=== PATIENT | male | born 1970 | race Caucasian/White ===

== ENCOUNTER 2020-03-28 00:15 | Observation (INO) ==
[2020-03-28] MEDS ORDERED: SODIUM CHLORIDE 0.9% 1000ML 1,000 ML IV ONE ×2 (00:47→03:43)
[2020-03-28] MEDS ORDERED: fentaNYL citrate 100 MCG/2 ML VIAL IV STA (00:47)
[2020-03-28] MEDS ORDERED: ONDANSETRON INJ 2 MG/ML 2 ML VIAL IV STA (00:51)
[2020-03-28 01:40] LABS: Hematocrit (blood only) 31.2 % (42-52); Hemoglobin 10.9 g/dL (14.0-18.0); Mean Corpuscular Hemoglobin 33.4 pg (25-34); Mean Corpuscular Hgb Conc 34.9 g/dL (32-36); Mean Corpuscular Volume 95.7 fL (80-100); Mean Platelet Volume 10.2 fL (7.4-10.4); Platelet Count 115 K/uL (130-400); RDW Coefficient of Variation 13.6 % (11.5-14.5); RDW Standard Deviation 47.5 fL (36.4-46.3); Red Blood Count 3.26 M/uL (4.7-6.1); White Blood Count 8.45 K/uL (4.8-10.8)
[2020-03-28 02:01] LABS: Albumin Level 3.2 gm/dl (3.4-5.0); Calcium 10.5 mg/dl (8.5-10.1); Creatinine Clr Calc Pharmacy 66.9 ml/min; Est GFR (African American) 69.1; Est GFR (Non-African American) 59.6; INR 1.1 (0.9-1.1); Partial Thromboplastin Ratio 0.8; Partial Thromboplastin Time 22.8 Seconds (21.0-31.0); Prothrombin Time 11.3 Seconds (9.0-12.0)
[2020-03-28 02:03] LABS: Bilirubin,Total 0.3 mg/dl (0.2-1); Globulin 3.1 gm/dl (2.5-4.0); Total Protein 6.3 gm/dl (6.4-8.2)
[2020-03-28 02:12] LABS: ALC (manual) 3.74 K/uL (1.2-3.4); ANC (manual) 4.12 K/uL (1.4-6.5); Eosinophils # (manual) 0.14 K/uL (0-0.5); Eosinophils % (manual) 1.7 %; Lymphocytes # (manual) 3.74 K/uL (1.2-3.4); Lymphocytes % (manual) 44.3 %; Monocytes # (manual) 0.22 K/uL (0.11-0.59); Monocytes % (manual) 2.6 %; Myelocytes # (manual) 0.22 K/uL (0-0); Myelocytes % (manual) 2.6 %; Neutrophils # (manual) 4.12 K/uL (1.4-6.5); Neutrophils % (manual) 48.8 %; Ovalocytes 1+
[2020-03-28 02:19] LABS: Appearance Urine Clear (Clear); Bacteria Urine Automated Negative (Negative); Bilirubin Urine Negative (Negative); Blood Urine 1+ (Negative); Color Urine Yellow; Glucose Urine UA Negative (Negative); Ketones Urine Negative (Negative); Leukocyte Esterase Urine Negative (Negative); Nitrite Urine Negative (Negative); Protein Urine 2+ (Negative); Specific Gravity Urine 1.044 (1.000-1.030); Urobilinogen Urine Negative (Negative)
[2020-03-28 02:30] LABS: Calcium Oxalate Crystals Urine Present (None Prsent)
[2020-03-28 02:31] LABS: RBC Urine Automated 0-4 /hpf (0-4)
[2020-03-28 02:36] LABS: C Reactive Protein 0.73 mg/dl (0-0.29)
[2020-03-28] MEDS ORDERED: GADOBUTROL 65ML VIAL IV PRN (02:52)
[2020-03-28] MEDS ORDERED: ACETAMINOPHEN 1,000 MG/100 ML VIAL IV STA (02:57)
--- NOTE | 2020-03-28 03:42 | Emergency Department Note ---
History of Present Illness General Chief complaint: Back Injury/Pain Stated complaint: LWR BACK PAIN - LUMBAR FUSION History of Present Illness Maximum Pain Intensity: 10 This 49-year-old cancer patient with multiple myeloma currently receiving chemo presents to the ER complaining of severe low back pain Location: Low back Quality: Achy Severity: Severe Duration: Today Timing: Today Context: Patient was concerned and came in Modifying factors: better with rest; worse with activity Patient states he had a low-grade fever yesterday after chemo. None today. Patient denies chest pain, dyspnea, cough, congestion, abdominal pain, loss of bowel bladder control, saddle anesthesia, leg weakness. He has had back surgery many years ago. Home Medications Home Medications Medication Instructions Recorded Confirmed Type docusate sodium 100 mg capsule 100 mg PO BID #60 cap 03/13/20 03/28/20 Rx acyclovir 400 mg PO BID 03/28/20 03/28/20 History aspirin [Aspirin Low Dose] 81 mg PO DAILY 03/28/20 03/28/20 History bortezomib [Velcade] 0 mg DIRECTED 03/28/20 03/28/20 History dexamethasone 4 mg PO DIRECTED 03/28/20 03/28/20 History lenalidomide [Revlimid] 25 mg PO DIRECTED 03/28/20 03/28/20 History prochlorperazine maleate 10 mg PO Q6H PRN 03/28/20 03/28/20 History [Compazine] Allergies Allergy/AdvReac Type Severity Reaction Status Date / Time No Known Allergies Allergy Unknown ` Verified 03/28/20 01:34 Past Med/Surg History Medical History (Updated 03/28/20 @ 05:22 by Saran Winn MD) Degenerative lumbar spinal stenosis Disc degeneration, lumbar (Acute) Hemorrhoid Multiple myeloma (Acute) Neuroforaminal stenosis of lumbar spine Surgical History History of lumbar surgery 2014 Family History Grandfather (Maternal) Stroke Denies family history of Ovarian cancer Prostate cancer Myocardial infarction Breast cancer Colorectal cancer Lung disease Social History Smoking Status: Never smoker Second Hand Exposure: Yes ( smokes outside); Hx Alcohol Use: Yes Alcohol type: beer Hx Substance Use: No Preferred Language: Malawian Visual Impairment: No Limitations Hearing Ability: Normal Beliefs That Will Affect Care: None current occupational status: employed current occupation: [employer] Feels Safe at Home: Yes Childhood Exposure to Second-Hand Smoke: No Review of Systems A total of 10 systems reviewed and were otherwise negative Physical Exam Vital Signs Vital Signs - 24 hr 03/28/20 00:22 03/28/20 01:00 03/28/20 01:43 Temperature 37 C Temperature Source Oral Pulse Rate 103 H 93 H Pulse Rate [Finger] 97 H Pulse Rate from SpO2 Sensor Pulse Rhythm Regular Pulse Rhythm [Finger] Respiratory Rate 20 20 20 Respiratory Effort / Characteristics Non-Labored Spontaneous Non-Labored Spontaneous Respiratory Depth Normal Normal Respiratory Pattern Regular Blood Pressure 99/59 L Blood Pressure [Right Arm] 96/64 L Blood Pressure Mean 72 Blood Pressure Mean [Right Arm] 74 Blood Pressure Position [Right Arm] Lying Pulse Oximetry 98 95 95 Oxygen Delivery Method Room Air Room Air Room Air Sepsis Recent Fever Within 48 Hours Yes Sepsis New/Unexplained Change in Mental Status N/A Sepsis Action Taken by Nursing No Action Required 03/28/20 02:51 03/28/20 02:55 03/28/20 03:00 Temperature Temperature Source Pulse Rate 93 H 91 H 91 H Pulse Rate [Finger] Pulse Rate from SpO2 Sensor 93 H 90 91 H Pulse Rhythm Pulse Rhythm [Finger] Respiratory Rate 16 19 17 Respiratory Effort / Characteristics Respiratory Depth Respiratory Pattern Blood Pressure 95/50 L 95/56 L Blood Pressure [Right Arm] Blood Pressure Mean 63 72 Blood Pressure Mean [Right Arm] Blood Pressure Position [Right Arm] Pulse Oximetry 95 95 94 Oxygen Delivery Method Sepsis Recent Fever Within 48 Hours Sepsis New/Unexplained Change in Mental Status Sepsis Action Taken by Nursing 03/28/20 03:05 03/28/20 03:06 03/28/20 03:10 Temperature Temperature Source Pulse Rate 92 H Pulse Rate [Finger] 92 H Pulse Rate from SpO2 Sensor 93 H Pulse Rhythm Pulse Rhythm [Finger] Regular Respiratory Rate 18 19 Respiratory Effort / Characteristics Respiratory Depth Normal Respiratory Pattern Blood Pressure Blood Pressure [Right Arm] 95/56 L Blood Pressure Mean Blood Pressure Mean [Right Arm] 69 Blood Pressure Position [Right Arm] Pulse Oximetry 94 94 94 Oxygen Delivery Method Room Air Room Air Sepsis Recent Fever Within 48 Hours Sepsis New/Unexplained Change in Mental Status Sepsis Action Taken by Nursing 03/28/20 03:20 03/28/20 03:30 03/28/20 03:40 Temperature Temperature Source Pulse Rate 91 H 85 83 Pulse Rate [Finger] Pulse Rate from SpO2 Sensor 90 85 83 Pulse Rhythm Pulse Rhythm [Finger] Respiratory Rate 16 14 15 Respiratory Effort / Characteristics Respiratory Depth Respiratory Pattern Blood Pressure 93/51 L Blood Pressure [Right Arm] Blood Pressure Mean 65 Blood Pressure Mean [Right Arm] Blood Pressure Position [Right Arm] Pulse Oximetry 93 93 93 Oxygen Delivery Method Sepsis Recent Fever Within 48 Hours Sepsis New/Unexplained Change in Mental Status Sepsis Action Taken by Nursing 03/28/20 03:49 03/28/20 03:51 03/28/20 04:00 Temperature Temperature Source Pulse Rate 85 89 82 Pulse Rate [Finger] Pulse Rate from SpO2 Sensor 85 88 83 Pulse Rhythm Pulse Rhythm [Finger] Respiratory Rate 17 17 16 Respiratory Effort / Characteristics Respiratory Depth Respiratory Pattern Blood Pressure 93/55 L 95/50 L Blood Pressure [Right Arm] Blood Pressure Mean 65 65 Blood Pressure Mean [Right Arm] Blood Pressure Position [Right Arm] Pulse Oximetry 94 93 94 Oxygen Delivery Method Sepsis Recent Fever Within 48 Hours Sepsis New/Unexplained Change in Mental Status Sepsis Action Taken by Nursing 03/28/20 04:10 03/28/20 04:20 03/28/20 04:30 Temperature Temperature Source Pulse Rate 83 91 H 87 Pulse Rate [Finger] Pulse Rate from SpO2 Sensor 83 92 H 88 Pulse Rhythm Pulse Rhythm [Finger] Respiratory Rate 15 20 18 Respiratory Effort / Characteristics Respiratory Depth Respiratory Pattern Blood Pressure 91/60 L Blood Pressure [Right Arm] Blood Pressure Mean 67 Blood Pressure Mean [Right Arm] Blood Pressure Position [Right Arm] Pulse Oximetry 93 95 95 Oxygen Delivery Method Sepsis Recent Fever Within 48 Hours Sepsis New/Unexplained Change in Mental Status Sepsis Action Taken by Nursing 03/28/20 04:40 03/28/20 04:50 03/28/20 05:00 Temperature Temperature Source Pulse Rate 84 87 86 Pulse Rate [Finger] Pulse Rate from SpO2 Sensor 84 87 86 Pulse Rhythm Pulse Rhythm [Finger] Respiratory Rate 18 15 14 Respiratory Effort / Characteristics Respiratory Depth Respiratory Pattern Blood Pressure 96/58 L Blood Pressure [Right Arm] Blood Pressure Mean 64 Blood Pressure Mean [Right Arm] Blood Pressure Position [Right Arm] Pulse Oximetry 96 96 94 Oxygen Delivery Method Sepsis Recent Fever Within 48 Hours Sepsis New/Unexplained Change in Mental Status Sepsis Action Taken by Nursing 03/28/20 05:04 Temperature Temperature Source Pulse Rate Pulse Rate [Finger] 90 Pulse Rate from SpO2 Sensor Pulse Rhythm Pulse Rhythm [Finger] Respiratory Rate 16 Respiratory Effort / Characteristics Non-Labored Respiratory Depth Normal Respiratory Pattern Blood Pressure Blood Pressure [Right Arm] 96/58 L Blood Pressure Mean Blood Pressure Mean [Right Arm] 70 Blood Pressure Position [Right Arm] Pulse Oximetry 96 Oxygen Delivery Method Room Air Sepsis Recent Fever Within 48 Hours Sepsis New/Unexplained Change in Mental Status Sepsis Action Taken by Nursing VITALS: Vitals are noted on the nurse's note and reviewed by myself. Vital signs stable. GENERAL: Pleasant male who appears in pain, in no acute distress, nondiaphoretic, well-developed well-nourished. SKIN: Capillary reflex less than 2 seconds. Left lower abdomen with 3 cm a 4 cm erythematous area that is blanchable. HEENT: Normocephalic. PERRLA. EOMI. Nares patent. Mucous membranes moist. Neck is supple without nuchal rigidity. HEART: Regular rate and rhythm LUNGS: Clear to auscultation bilaterally without wheezes, rales or rhonchi. No retractions or accessory muscle use. ABDOMEN: Positive bowel sounds x 4. Normal tympanic percussion. Soft, nontender, without masses or organomegaly. Hendrickson sign negative. No guarding or rebound tenderness. MUSCULOSKELETAL: No gross musculoskeletal defects. No thoracic tenderness. Tender to palpation at L4 and L5. No step-offs. Patient can plantarflex and dorsiflex. NEURO: Patient was alert and oriented to person place and time. Normal sensation to light and sharp touch. Deep tendon reflexes 2+ patella bilaterally. No focal neurological deficits. Course Administered Medications Gadobutrol (Gadavist 65ml) 8.6 ml IV ONCE PRN PRN Reason: Interaction Checking Stop: 04/01/20 02:51 Last Admin: 03/28/20 02:30 Dose: 8.6 ml Documented by: [id number] Discontinued Medications Fentanyl Citrate (Fentanyl Citrate) 100 mcg IV NOW STA Stop: 03/28/20 00:48 Last Admin: 03/28/20 01:37 Dose: 100 mcg Documented by: [id number] Sodium Chloride (Nss 1000ml) 1,000 mls @ 999 mls/hr IV .Q1H1M ONE Stop: 03/28/20 01:47 Last Infusion: 03/28/20 02:54 Dose: 0 mls/hr Documented by: [id number] Admin: 03/28/20 01:37 Dose: 999 mls/hr Documented by: [id number] Acetaminophen (Ofirmev) 1,000 mg in 100 mls @ 400 mls/hr IV NOW STA Stop: 03/28/20 03:11 Last Infusion: 03/28/20 03:33 Dose: 0 mls/hr Documented by: [id number] Admin: 03/28/20 03:18 Dose: 400 mls/hr Documented by: [id number] Sodium Chloride (Nss 1000ml) 1,000 mls @ 999 mls/hr IV .Q1H1M ONE Stop: 03/28/20 04:43 Last Infusion: 03/28/20 05:06 Dose: 0 mls/hr Documented by: [id number] Admin: 03/28/20 04:05 Dose: 999 mls/hr Documented by: [id number] Ondansetron HCl (Zofran) 4 mg IV NOW STA Stop: 03/28/20 00:52 Last Admin: 03/28/20 01:37 Dose: 4 mg Documented by: [id number] Medical Decision Making Medical Records Attestation: I reviewed the patient's medical records. Home Medications Current Medication List: was personally reviewed by me Laboratory Data Attestation: I reviewed the patient's lab results. Result diagrams: 03/28/20 01:25 03/28/20 01:25 Lab Results 03/28/20 03/28/20 03/28/20 Range/Units 01:24 01:25 01:25 WBC 8.45 (4.8-10.8) K/uL RBC 3.26 L (4.7-6.1) M/uL Hgb 10.9 L (14.0-18.0) g/dL Hct 31.2 L (42-52) % MCV 95.7 (80-100) fL MCH 33.4 (25-34) pg MCHC 34.9 (32-36) g/dL RDW Std Deviation 47.5 H (36.4-46.3) fL RDW Coeff of Regina 13.6 (11.5-14.5) % Plt Count 115 L (130-400) K/uL MPV 10.2 (7.4-10.4) fL Neutrophils % (Manual) 48.8 % Lymphocytes % (Manual) 44.3 % Monocytes % (Manual) 2.6 % Eosinophils % (Manual) 1.7 % Myelocytes % (Man) 2.6 % Neutrophils # (Manual) 4.12 (1.4-6.5) K/uL Total Absolute Neuts 4.12 (1.4-6.5) K/uL Lymphocytes # (Manual) 3.74 H (1.2-3.4) K/uL Total Abs Lymphocytes 3.74 H (1.2-3.4) K/uL Monocytes # (Manual) 0.22 (0.11-0.59) K/uL Eosinophils # (Manual) 0.14 (0-0.5) K/uL Myelocytes # (Manual) 0.22 H (0-0) K/uL Ovalocytes 1+ ESR (0-14) mm/hr PT 11.3 (9.0-12.0) Seconds INR 1.1 (0.9-1.1) APTT 22.8 (21.0-31.0) Seconds PTT Ratio 0.8 Sodium (136-145) mmol/L Potassium (3.5-5.1) mmol/L Chloride (98-107) mmol/L Carbon Dioxide (21-32) mmol/L Anion Gap (3-11) BUN (7-18) mg/dl Creatinine (0.6-1.4) mg/dl Est Cr Clr Drug Dosing ml/min Est GFR ( Amer) Est GFR (Non-Af Amer) BUN/Creatinine Ratio (10-20) Glucose (70-99) mg/dl Lactate 0.9 (0.4-2.0) mmol/L Calcium (8.5-10.1) mg/dl Magnesium (1.8-2.4) mg/dl Total Bilirubin (0.2-1) mg/dl AST (15-37) U/L ALT (12-78) U/L Alkaline Phosphatase (45-117) U/L C-Reactive Protein (0-0.29) mg/dl Total Protein (6.4-8.2) gm/dl Albumin (3.4-5.0) gm/dl Globulin (2.5-4.0) gm/dl Albumin/Globulin Ratio (0.9-2) Urine Color Urine Appearance (Clear) Urine pH (4.5-7.5) Ur Specific [place] (1.000-1.030) Urine Protein (Negative) Urine Glucose (UA) (Negative) Urine Ketones (Negative) Urine Blood (Negative) Urine Nitrite (Negative) Urine Bilirubin (Negative) Urine Urobilinogen (Negative) Ur Leukocyte Esterase (Negative) Urine WBC (Auto) (0-5) /hpf Urine RBC (Auto) (0-4) /hpf U Hyaline Cast (Auto) (0-5) /lpf U Epithel Cells (Auto) (0-5) /lpf Urine Bacteria (Auto) (Negative) Urine Crystals Calcium Oxalate Crystal (None Prsent) 03/28/20 03/28/20 03/28/20 Range/Units 01:25 01:25 01:25 WBC (4.8-10.8) K/uL RBC (4.7-6.1) M/uL Hgb (14.0-18.0) g/dL Hct (42-52) % MCV (80-100) fL MCH (25-34) pg MCHC (32-36) g/dL RDW Std Deviation (36.4-46.3) fL RDW Coeff of Regina (11.5-14.5) % Plt Count (130-400) K/uL MPV (7.4-10.4) fL Neutrophils % (Manual) % Lymphocytes % (Manual) % Monocytes % (Manual) % Eosinophils % (Manual) % Myelocytes % (Man) % Neutrophils # (Manual) (1.4-6.5) K/uL Total Absolute Neuts (1.4-6.5) K/uL Lymphocytes # (Manual) (1.2-3.4) K/uL Total Abs Lymphocytes (1.2-3.4) K/uL Monocytes # (Manual) (0.11-0.59) K/uL Eosinophils # (Manual) (0-0.5) K/uL Myelocytes # (Manual) (0-0) K/uL Ovalocytes ESR 5 (0-14) mm/hr PT (9.0-12.0) Seconds INR (0.9-1.1) APTT (21.0-31.0) Seconds PTT Ratio Sodium 144 (136-145) mmol/L Potassium 4.0 (3.5-5.1) mmol/L Chloride 110 H (98-107) mmol/L Carbon Dioxide 28 (21-32) mmol/L Anion Gap 6.0 (3-11) BUN 22 H (7-18) mg/dl Creatinine 1.38 (0.6-1.4) mg/dl Est Cr Clr Drug Dosing 66.9 ml/min Est GFR ( Amer) 69.1 Est GFR (Non-Af Amer) 59.6 BUN/Creatinine Ratio 16.0 (10-20) Glucose 92 (70-99) mg/dl Lactate (0.4-2.0) mmol/L Calcium 10.5 H (8.5-10.1) mg/dl Magnesium 2.0 (1.8-2.4) mg/dl Total Bilirubin 0.3 (0.2-1) mg/dl AST 18 (15-37) U/L ALT 23 (12-78) U/L Alkaline Phosphatase 81 (45-117) U/L C-Reactive Protein 0.73 H (0-0.29) mg/dl Total Protein 6.3 L (6.4-8.2) gm/dl Albumin 3.2 L (3.4-5.0) gm/dl Globulin 3.1 (2.5-4.0) gm/dl Albumin/Globulin Ratio 1.0 (0.9-2) Urine Color Yellow Urine Appearance Clear (Clear) Urine pH 5.0 (4.5-7.5) Ur Specific [place] 1.044 H (1.000-1.030) Urine Protein 2+ H (Negative) Urine Glucose (UA) Negative (Negative) Urine Ketones Negative (Negative) Urine Blood 1+ H (Negative) Urine Nitrite Negative (Negative) Urine Bilirubin Negative (Negative) Urine Urobilinogen Negative (Negative) Ur Leukocyte Esterase Negative (Negative) Urine WBC (Auto) 5-10 H (0-5) /hpf Urine RBC (Auto) 0-4 (0-4) /hpf U Hyaline Cast (Auto) 10-30 H (0-5) /lpf U Epithel Cells (Auto) 10-20 H (0-5) /lpf Urine Bacteria (Auto) Negative (Negative) Urine Crystals Not Reportable Calcium Oxalate Crystal Present A (None Prsent) Imaging Data Attestation: I personally reviewed and interpreted this imaging study as f armando: Blood Pressure Blood Pressure Findings: Low blood pressure MDM Narrative Prior records/ancillary studies reviewed. Triage Nursing notes reviewed. Additional history obtained from family. The patient's history was concerning for back pain. Differential diagnosis: Etiologies such as musculoskeletal, disc herniation, fracture, aortic disease, metastatic disease, cord compression, discitis, infection, renal colic, gastrointestinal, acute exacerbation of chronic back pain, sciatica, cauda equina, as well as others were entertained. Physical findings: As above. No focal neurologic findings noted. ER treatment provided: IV fluids, fentanyl On reassessment the patient felt better. Diagnostics interpreted by me: EKG ordered for severe pain EKG: Normal sinus, normal intervals, no acute ST-T wave changes. Impression normal sinus rhythm interpreted by myself I think arrhythmia is unlikely. EKG shows normal sinus rhythm with no interval abnormalities such as QT prolongation or WPW. There are no findings to suggest Brugada syndrome. Cardiac monitoring in the emergency department reveals no tachycardic or bradycardic dysrhythmia. Hypertrophic cardiomyopathy was considered but there are no clear historical elements pointing toward this. EKG is not suggestive. The QRS voltage is not extremely large and there are no suggestive Q waves. The labs revealed mild anemia, negative lactic acid. Negative urine Blood cultures pending. Imaging studies: Chest x-ray with no acute consolidation, pneumothorax or free air per my interpretation MRI L SPINE : COMPARISON: Fluoroscopic intraoperative imaging dated 12/27/12 Inferior endplate Schmorl's nodes seen at L1. Some abnormal signal seen within the vertebral body with sclerosis, possibly due to myeloma. Minimal edema is seen secondary to the Schmorl's node. Broad-based disc bulge with ligamentous and facet hypertrophy of L2/L3 causing severe central stenosis. AP diameter of the spinal canal is narrowed to 3.8 mm. Bilateral lateral recess stenosis is also seen. Broad-based disc bulge also seen at L1/L2 with ligamentous and facet hypertrophy causing mild to moderate central stenosis. Evidence of previous L4 and L5 laminectomy with posterior fusion of L3-S1. Bilateral left worse than right neuroforaminal stenosis seen at L4/L5. Some epidural fibrosis is seen anterior to the left at L4/L5 and possibly involving the exiting left L4 nerve root. Radiologist: Bryson Valenzuela M.D. Consultation: A consultation was placed with hospitalist, Dr. Hebert. The case was discussed and diagnostics were reviewed. He will evaluate the patient. This appears to be consistent with intractable back pain with hypotension and multiple myeloma Olga possibly metastases to the spine. Patient still moderate amount of pain. Medicine was consulted. He will be admitted. Patient's blood pressure sure was still a little low. He was asymptomatic. He was given a liter of fluid. He had a fever yesterday but none today. Negative lactic acid. No leukocytosis. No urine infection. Negative chest x-ray. Patient started on antibiotics for possible cellulitis of the abdominal wall. This was outlined by nursing. By the evaluation outlined above emergent etiologies such as fracture, aortic disease, infection, renal colic, gastrointestinal, cord compression, cauda equina, as well as others were deemed relatively unlikely. The pt informed about the findings as listed above. All questions were answered and pleased with the treatment. . The chart was completed utilizing [employer] Speech voice recognition software. Grammatical errors, random word insertions, pronoun errors, and incomplete sentences are an occassional consequence of this system due to software limitations, ambient noise, and hardware issues. Any formal questions or concerns about the content, text, or information contained within the body of this dictation should be directly addressed to the physician enrichment assistant for clarification. Impression & Plan Disc degeneration, lumbar, Multiple myeloma, Intractable low back pain Discharge Plan Visit Data Chief Complaint: Back Injury/Pain Stated Complaint: LWR BACK PAIN - LUMBAR FUSION ED Provider: Angely Smith ED Midlevel Provider: Linda Treviño Discharge Problem: Disc degeneration, lumbar, Multiple myeloma, Intractable low back pain Patient Disposition: Being Evaluated by Hospitalist Condition: Fair Forms Stand Alone Forms: [facility] SongAfter Prescriptions Prescriptions: No Action docusate sodium [Colace] 100 mg capsule 100 mg PO BID Qty: 60 RF: 1 acyclovir 400 mg Tablet 400 mg PO BID RF: 0 prochlorperazine maleate [Compazine] 10 mg Tablet 10 mg PO Q6H PRN (Reason: Nausea) RF: 0 aspirin [Aspirin Low Dose] 81 mg Tablet,Delayed Release (Dr/Ec) 81 mg PO DAILY RF: 0 dexamethasone 4 mg Tablet 4 mg PO DIRECTED RF: 0 Velcade 3.5 mg Recon Soln 0 mg DIRECTED RF: 0 Revlimid 25 mg Capsule 25 mg PO DIRECTED RF: 0 Referrals Referrals: Adrian Prince MD [Primary Care Provider] -
[2020-03-28] MEDS ORDERED: DEXAMETHASONE **PF** INJ 10 MG/ML VIAL IV ONE (04:58)
[2020-03-28] MEDS ORDERED: PIPERACILL/TAZOBAC CONSULT ACTIVE PRN ×2 (04:58→07:06)
[2020-03-28] MEDS ORDERED: VANCOMYCIN HCL 1,750 MG in SODIUM CHLORIDE 0.9% 500 ML IV ONE (04:58)
[2020-03-28] MEDS ORDERED: VANCOMYCIN CONSULT ACTIVE PRN ×2 (04:58→07:06)
[2020-03-28] MEDS ORDERED: PIPERACILLIN/TAZOBACTAM 4.5 GM/120 ML BAG IV ONE (04:58)
--- NOTE | 2020-03-28 05:27 | History & Physical Report ---
Date of Service March 28, 2020 Assessment & Plan (1) Intractable low back pain: Intractable low back pain/multilevel lumbar degenerative disc disease/degenerative lumbar spinal stenosis/neuroforaminal stenosis/history L4/5 laminectomy- Admit to monitored bed due to hypotension. Given Decadron 10 mg IV in the ED, and will continue 4 mg IV every 6 hours. Zofran 4 mg IV every 6 hours as needed Consult orthopedic spine surgery Dr. Barron. If no surgery anticipated, will consult Drs. Hopkins/Srinivasa from pain management. Present on Admission?: Yes (2) Disc degeneration, lumbar: See above Present on Admission?: Yes (3) Degenerative lumbar spinal stenosis: See above Present on Admission?: Yes (4) Neuroforaminal stenosis of lumbar spine: See above Present on Admission?: Yes (5) Multiple myeloma: Follows with Dr. Barrios. Received his first Velcade injection 4 days ago on Tuesday. Continue acyclovir 40 mg p.o. twice daily and aspirin 81 mg daily Present on Admission?: Yes (6) Hypotension: Main potential source is that of abdominal wall cellulitis. No signs of epidural abscess. No other symptomatologies to suggest infection. He received a total of 2 L normal saline in the ED, then NSS + KCl 20 mEq 150 mils per hour. Admit to monitored bed to follow blood pressure Present on Admission?: Yes (7) Cellulitis of left abdominal wall: At injection site, developed 3 days after injection. No sign of shingles, but will need to be monitored closely. Vancomycin IV and Zosyn IV. Present on Admission?: Yes History of Present Illness Chief Complaint: The patient presents to the emergency department with acute onset of low back pain. Primary Care Provider: Adrian Prince MD The patient is a 49-year-old male with a past medical history including multiple myeloma, lumbar degenerative disc disease, and hemorrhoids. He received his first injection of Velcade on Tuesday, 4 days ago, and since that time has noted feelings of general malaise, and within the past 24 hours has developed acute onset of severe nonradiating low back pain. He denies any loss of bowel or bladder function. He has not had any recent injuries. He was also noted in the emergency department to have lower blood pressure than usual, with systolic blood pressure in the low 90s. He is receiving a second bag of normal saline, without significant improvement in blood pressure. He does look to have a cellulitis that just developed over the past 24 hours at his injection site. Allergies Allergy/AdvReac Type Severity Reaction Status Date / Time No Known Allergies Allergy Unknown ` Verified 03/28/20 01:34 Home Medications Home Medications Medication Instructions Recorded Confirmed Type docusate sodium 100 mg capsule 100 mg PO BID #60 cap 03/13/20 03/28/20 Rx acyclovir 400 mg PO BID 03/28/20 03/28/20 History aspirin [Aspirin Low Dose] 81 mg PO DAILY 03/28/20 03/28/20 History bortezomib [Velcade] 0 mg DIRECTED 03/28/20 03/28/20 History dexamethasone 4 mg PO DIRECTED 03/28/20 03/28/20 History lenalidomide [Revlimid] 25 mg PO DIRECTED 03/28/20 03/28/20 History prochlorperazine maleate 10 mg PO Q6H PRN 03/28/20 03/28/20 History [Compazine] Past Med/Surg History Medical History Disc degeneration, lumbar (Acute) Hemorrhoid Multiple myeloma Surgical History History of lumbar surgery 2014 Family History Grandfather (Maternal) Stroke Denies family history of Ovarian cancer Prostate cancer Myocardial infarction Breast cancer Colorectal cancer Lung disease Social History Smoking Status: Never smoker Second Hand Exposure: Yes ( smokes outside); Hx Alcohol Use: Yes Alcohol type: beer Hx Substance Use: No Preferred Language: Hungarian Visual Impairment: No Limitations Hearing Ability: Normal Beliefs That Will Affect Care: None current occupational status: employed current occupation: [employer] Feels Safe at Home: Yes Childhood Exposure to Second-Hand Smoke: No Review of Systems Review of Systems: The patient denies chest pain, palpitations, shortness of breath, dyspnea on exertion, cough, lower extremity swelling, sore throat, fevers, chills, sweats, nausea, vomiting, diarrhea , constipation, abdominal pain, pelvic pain, blood in urine or stool, dysuria, urinary frequency or urgency, lightheadedness, dizziness, headache, memory loss, loss of consciousness, abnormal bruising or bleeding, imbalance, focal weakness, numbness or tingling in arms or legs, neck pain, or night sweats. The review of systems is otherwise negative other than for that already noted above, and at least 10 systems have been reviewed. Physical Exam Physical Exam: The patient is awake, alert and oriented 3, well developed and well nourished, normocephalic and atraumatic, lying in bed and in no acute distress. HEENT--PERRL, EOMI, mucous membranes and oropharynx normal. Neck--supple. No JVD. No bruits. Thyroid normal, trachea midline, no adenopathy. Heart--normal S1 and S2. No murmurs, rubs or gallops. Lungs--clear bilaterally, no respiratory distress, no accessory muscle use. Abdomen--normal bowel sounds and soft. Nontender. Nondistended. Extremities--no cyanosis or clubbing. No edema. Dermatologic--left lower quadrant abdominal wall with 2 x 4 inch area of erythema and induration that blanches. Neurologic--cranial nerves II through XII grossly intact. Rheumatologic--normal range of motion. Psychiatric--normal affect. Results & Data Results & Data ([facility]) Vital Signs (Past 12 Hours) Vital Signs Temp Pulse Pulse Resp BP BP Pulse Ox 03/28/20 05:04 90 16 96/58 L 96 03/28/20 05:00 86 14 96/58 L 94 03/28/20 04:50 87 15 96 03/28/20 04:40 84 18 96 03/28/20 04:30 87 18 91/60 L 95 03/28/20 04:20 91 H 20 95 03/28/20 04:10 83 15 93 03/28/20 04:00 82 16 95/50 L 94 03/28/20 03:51 89 17 93 03/28/20 03:49 85 17 93/55 L 94 03/28/20 03:40 83 15 93 03/28/20 03:30 85 14 93/51 L 93 03/28/20 03:20 91 H 16 93 03/28/20 03:10 92 H 19 94 03/28/20 03:06 94 03/28/20 03:05 92 H 18 95/56 L 94 03/28/20 03:00 91 H 17 95/56 L 94 03/28/20 02:55 91 H 19 95 03/28/20 02:51 93 H 16 95/50 L 95 03/28/20 01:43 97 H 20 96/64 L 95 03/28/20 01:00 93 H 20 95 03/28/20 00:22 98.6 F 103 H 20 99/59 L 98 Laboratory Results Laboratory Results WBC 8.45 K/uL (4.8-10.8) 03/28/20 01:25 RBC 3.26 M/uL (4.7-6.1) L 03/28/20 01:25 Hgb 10.9 g/dL (14.0-18.0) L 03/28/20 01:25 Hct 31.2 % (42-52) L 03/28/20 01:25 MCV 95.7 fL (80-100) 03/28/20 01:25 MCH 33.4 pg (25-34) 03/28/20 01:25 MCHC 34.9 g/dL (32-36) 03/28/20 01:25 RDW Std Deviation 47.5 fL (36.4-46.3) H 03/28/20 01:25 RDW Coeff of [place] 13.6 % (11.5-14.5) 03/28/20 01:25 Plt Count 115 K/uL (130-400) L 03/28/20 01:25 MPV 10.2 fL (7.4-10.4) 03/28/20 01:25 Neutrophils % (Manual) 48.8 % 03/28/20 01:25 Lymphocytes % (Manual) 44.3 % 03/28/20 01:25 Monocytes % (Manual) 2.6 % 03/28/20 01:25 Eosinophils % (Manual) 1.7 % 03/28/20 01:25 Myelocytes % (Man) 2.6 % 03/28/20 01:25 Neutrophils # (Manual) 4.12 K/uL (1.4-6.5) 03/28/20 01:25 Total Absolute Neuts 4.12 K/uL (1.4-6.5) 03/28/20 01:25 Lymphocytes # (Manual) 3.74 K/uL (1.2-3.4) H 03/28/20 01:25 Total Abs Lymphocytes 3.74 K/uL (1.2-3.4) H 03/28/20 01:25 Monocytes # (Manual) 0.22 K/uL (0.11-0.59) 03/28/20 01:25 Eosinophils # (Manual) 0.14 K/uL (0-0.5) 03/28/20 01:25 Myelocytes # (Manual) 0.22 K/uL (0-0) H 03/28/20 01:25 Ovalocytes 1+ 03/28/20 01:25 ESR 5 mm/hr (0-14) 03/28/20 01:25 PT 11.3 Seconds (9.0-12.0) 03/28/20 01:25 INR 1.1 (0.9-1.1) 03/28/20 01:25 APTT 22.8 Seconds (21.0-31.0) 03/28/20 01:25 PTT Ratio 0.8 03/28/20 01:25 Sodium 144 mmol/L (136-145) 03/28/20 01:25 Potassium 4.0 mmol/L (3.5-5.1) 03/28/20 01:25 Chloride 110 mmol/L (98-107) H 03/28/20 01:25 Carbon Dioxide 28 mmol/L (21-32) 03/28/20 01:25 Anion Gap 6.0 (3-11) 03/28/20 01:25 BUN 22 mg/dl (7-18) H 03/28/20 01:25 Creatinine 1.38 mg/dl (0.6-1.4) 03/28/20 01:25 Est Cr Clr Drug Dosing 66.9 ml/min 03/28/20 01:25 Est GFR ( Amer) 69.1 03/28/20 01:25 Est GFR (Non-Af Amer) 59.6 03/28/20 01:25 BUN/Creatinine Ratio 16.0 (10-20) 03/28/20 01:25 Glucose 92 mg/dl (70-99) 03/28/20 01:25 Lactate 0.9 mmol/L (0.4-2.0) 03/28/20 01:24 Calcium 10.5 mg/dl (8.5-10.1) H 03/28/20 01:25 Magnesium 2.0 mg/dl (1.8-2.4) 03/28/20 01:25 Total Bilirubin 0.3 mg/dl (0.2-1) 03/28/20 01:25 AST 18 U/L (15-37) 03/28/20 01:25 ALT 23 U/L (12-78) 03/28/20 01:25 Alkaline Phosphatase 81 U/L (45-117) 03/28/20 01:25 C-Reactive Protein 0.73 mg/dl (0-0.29) H 03/28/20 01:25 Total Protein 6.3 gm/dl (6.4-8.2) L 03/28/20 01:25 Albumin 3.2 gm/dl (3.4-5.0) L 03/28/20 01:25 Globulin 3.1 gm/dl (2.5-4.0) 03/28/20 01:25 Albumin/Globulin Ratio 1.0 (0.9-2) 03/28/20 01:25 Urine Color Yellow 03/28/20 01:25 Urine Appearance Clear (Clear) 03/28/20 01:25 Urine pH 5.0 (4.5-7.5) 03/28/20 01:25 Ur Specific [place] 1.044 (1.000-1.030) H 03/28/20 01:25 Urine Protein 2+ (Negative) H 03/28/20 01:25 Urine Glucose (UA) Negative (Negative) 03/28/20 01:25 Urine Ketones Negative (Negative) 03/28/20 01:25 Urine Blood 1+ (Negative) H 03/28/20 01:25 Urine Nitrite Negative (Negative) 03/28/20 01:25 Urine Bilirubin Negative (Negative) 03/28/20 01:25 Urine Urobilinogen Negative (Negative) 03/28/20 01:25 Ur Leukocyte Esterase Negative (Negative) 03/28/20 01:25 Urine WBC (Auto) 5-10 /hpf (0-5) H 03/28/20 01:25 Urine RBC (Auto) 0-4 /hpf (0-4) 03/28/20 01:25 U Hyaline Cast (Auto) 10-30 /lpf (0-5) H 03/28/20 01:25 U Epithel Cells (Auto) 10-20 /lpf (0-5) H 03/28/20 01:25 Urine Bacteria (Auto) Negative (Negative) 03/28/20 01:25 Urine Crystals Not Reportable 03/28/20 01:25 Calcium Oxalate Crystal Present (None Prsent) A 03/28/20 01:25 Code Status & VTE Plan Code Status Full code VTE Prophylaxis Plan VTE Prophylaxis will be ordered: Yes PG Care Time/CCT Total # of Minutes Spent Total Time Spent with Patient: Total time spent is greater than 50% in coordination of care (as documented) at patient's floor/unit and/or counseling patient: Coding Level of Care Code 27601 Initial Inpt Care Lvl 3 Diagnoses Intractable low back pain M54.5 Disc degeneration, lumbar M51.36 Degenerative lumbar spinal stenosis M48.061 Neuroforaminal stenosis of lumbar spine M99.73 Multiple myeloma C90.00 Hypotension I95.9 Cellulitis of left abdominal wall L03.311
--- NOTE | 2020-03-28 07:01 | Magnetic Resonance Report ---
MRI OF THE LUMBAR SPINE WITH AND WITHOUT CONTRAST CLINICAL HISTORY: Severe low back pain. Back surgery. Multiple myeloma. COMPARISON STUDY: Lumbar spine radiographs October 29, 2012. TECHNIQUE: Utilizing a 1.5 Kaye magnet and dedicated coil, multiplanar, multiecho imaging of the [facility] spine was performed before and after uneventful IV administration of 8.6 mL of Gadavist. FINDINGS: For purposes of this exam, the L5-S1 disc space is assigned to axial image 27 of 30. Postoperative fi ndings consistent with L4-L5 and L5-S1 discectomies are noted. Posterior decompression is noted. Ther e are bilateral pedicle screws extending from L3 through S1. There is no intracanalicular mass or flu id collection. The conus terminates at the mid T12 level. Paravertebral soft tissues are unremarkable . There is no abnormal enhancement within the central canal. There is a 2.2 cm focus of signal abnorm ality within the L1 vertebral body. Specifically, this focus is hypointense on the postcontrast image s and slightly hypointense on the T1 precontrast images. This is slightly T2 hyperintense. There is s light loss of height of this vertebral body with a Schmorl's node along the inferior endplate of L1. Marrow signal within visualized skeletal structures is slightly diminished on the T1-weighted sequenc e. L1-2: There is disc bulge with ligamentous hypertrophy and facet arthrosis. There is mild to moderate central canal narrowing. There is mild narrowing of the bilateral lateral recesses and neural forame n. L2-3: Severe central canal stenosis is noted due to disc bulge, ligamentous hypertrophy and facet art hrosis. AP diameter of the patent canal is 3.4 mm. There is also moderate narrowing of both lateral r ecesses and mild narrowing of the right neural foramen. L3-4: The central canal and neural foramen are patent post decompression. L4-5: The central canal and neural foramen are patent post decompression. L5-S1: The central canal and neural foramen are patent post decompression. IMPRESSION: 1. Severe central canal stenosis at L2-L3 due to disc bulge, ligamentous hypertrophy and facet arthro sis. Mild to moderate central canal narrowing at L1-L2. 2. Status post L4-L5 and L5-S1 discectomies with posterior decompression and L3-S1 bilateral pedicle screw fusion. 3. 2.2 cm focus of abnormal signal within the L1 vertebral body with slight loss of height and a Schm orl's node along the inferior endplate. Signal abnormality may be related to multiple myeloma. Mildly diminished T1 marrow signal throughout visualized skeletal structures which may also be related mult iple myeloma. ACT 112: Negative or not required by law. Electronically signed by: Leoncio Lee M.D. 03/28/2020 7:00 AM
[2020-03-28] MEDS ORDERED: ONDANSETRON INJ 2 MG/ML 2 ML VIAL IV PRN (07:06)
[2020-03-28] MEDS ORDERED: ACETAMINOPHEN 325 MG TAB PO PRN (07:06)
--- NOTE | 2020-03-28 07:07 | XRay Report ---
XR chest 1V portable CLINICAL HISTORY: SEPSIS COMPARISON STUDY: Chest CT February 21, 2020. Chest radiograph November 06, 2012. FINDINGS: Lung volumes are normal. There is no pneumothorax or pleural effusion. There is no consolid ation to suggest pneumonia. Cardiac silhouette is unremarkable. A 4.1 cm opacity projecting over the left upper chest corresponds to a left rib lesion shown on chest CT of February 21, 2020. IMPRESSION: 1. No acute findings. 2. 4.1 cm opacity projecting over the left upper chest which corresponds to a left second rib lesion shown on prior chest CT. The findings are consistent with the known diagnosis of multiple myeloma. ACT 112: Negative or not required by law. Electronically signed by: Leoncio Lee M.D. 03/28/2020 7:06 AM
[2020-03-28] MEDS ORDERED: INFLUENZA VIRUS QUAD VACCINE 0.5 ML SYR IM ONE (07:22)
[2020-03-28] MEDS ORDERED: INFLUENZA ADMINISTRATION CHARGE ONE (07:22)
[2020-03-28] MEDS: NSS + 20MEQ KCL 20 MEQ/1,000 ML BAG IV SCH ×3 (08:54→23:44)
[2020-03-28] MEDS: ASPIRIN 81 MG ECTAB PO SCH (08:55)
[2020-03-28] MEDS: DOCUSATE SODIUM 100 MG CAP PO SCH ×2 (08:55→20:09)
[2020-03-28] MEDS: ACYCLOVIR 400 MG TAB PO SCH ×2 (08:55→20:09)
[2020-03-28] MEDS: ENOXAPARIN INJ 40 MG/0.4 ML SYR SQ SCH (08:56)
[2020-03-28] MEDS: LENALIDOMIDE 25 MG PO SCH (08:57)
[2020-03-28] MEDS ORDERED: PIPERACILLIN/TAZOBACTAM 4.5 GM in DEXTROSE 5% 100 ML IV SCH (09:00)
--- NOTE | 2020-03-28 10:01 | Orthopedic Consultation ---
Date of Consultation March 28, 2020 Assessment & Plan (1) Degenerative lumbar spinal stenosis: At this point all of patient's symptoms are axial in nature. He appears to have acute back spasm. While there is spinal stenosis is not having a neurologic symptoms. We will get some upright x-rays of his back to assess stability. We will continue with IV Decadron Toradol and likely progressing with physical therapy. Hopefully this instance will resolve without the need for any further intervention. I discussed this with patient his was present during the discussion. We will review his films and make further recommendations. History of Present Illness Attending Physician: Ab Lynch DO History of Present Illness Patient is a pleasant 49-year-old male who is well-known to our office. In 2012 he did undergone a lumbar decompression fusion from L3 to the sacrum. He did very well after his surgery he got back to all his normal activities. Yesterday while at work he was leaning forward when he went to stand up felt something pop and pull in his back resulting in significant and severe pain. He was brought to the emergency room with intractable back pain and was admitted through the emergency room. He is being treated with pain medication and IV steroids. He describes his pain as being across the lower portion of his back. He is not having any extension into his legs. He denies any numbness or tingling in the legs themselves. He can be up for a couple of hours at a time and then the back starts to ache and has to lie back down. He denies any other numbness, tingling, or paresthesias. Allergies Allergy/AdvReac Type Severity Reaction Status Date / Time No Known Allergies Allergy Unknown ` Verified 03/28/20 01:34 Home Medications Home Medications Medication Instructions Recorded Confirmed Type docusate sodium 100 mg capsule 100 mg PO BID #60 cap 03/13/20 03/28/20 Rx acyclovir 400 mg PO BID 03/28/20 03/28/20 History aspirin [Aspirin Low Dose] 81 mg PO DAILY 03/28/20 03/28/20 History bortezomib [Velcade] 0 mg DIRECTED 03/28/20 03/28/20 History dexamethasone 4 mg PO DIRECTED 03/28/20 03/28/20 History lenalidomide [Revlimid] 25 mg PO DIRECTED 03/28/20 03/28/20 History prochlorperazine maleate 10 mg PO Q6H PRN 03/28/20 03/28/20 History [Compazine] Patient History Medical History (Updated 03/28/20 @ 05:22 by Saran Winn MD) Degenerative lumbar spinal stenosis Disc degeneration, lumbar (Acute) Hemorrhoid Multiple myeloma (Acute) Neuroforaminal stenosis of lumbar spine Surgical History History of lumbar surgery 2014 Family History Grandfather (Maternal) Stroke Denies family history of Ovarian cancer Prostate cancer Myocardial infarction Breast cancer Colorectal cancer Lung disease Social History Smoking Status: Never smoker Second Hand Exposure: No; Hx Alcohol Use: Yes Alcohol type: beer Hx Substance Use: No Preferred Language: Luxembourgish Communication Ability: Effective Visual Impairment: No Limitations Hearing Ability: Normal 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 He is in no apparent distress. Is full range of motion of the hips and knees. He is able to elevate his heel off the bed. His lower extremity motor exam reveals no focal atrophy his strength is 5 out of 5 to detailed muscle testing without exception. Sensations intact to light touch proprioception is also intact. His gait was not observed. Results & Data ([facility]) Vital Signs (Past 12 Hours) Vital Signs Temp Pulse Pulse Resp BP BP Pulse Ox 03/28/20 07:47 92 H 03/28/20 07:07 36.6 C 83 18 103/69 98 03/28/20 06:33 79 18 95/56 L 94 03/28/20 06:32 85 18 95/56 L 95 03/28/20 06:30 82 15 95/56 L 95 03/28/20 06:20 81 14 95 03/28/20 06:10 88 18 96 03/28/20 06:00 80 15 97/60 L 97 03/28/20 05:50 83 15 95 03/28/20 05:40 86 20 95 07/24/20 05:30 82 14 94/55 L 94 07/24/20 05:20 84 15 94 07/24/20 05:10 82 15 92 07/24/20 05:04 90 16 96/58 L 96 /20 05:00 86 14 96/58 L 94 //20 04:50 87 15 96 //20 04:40 84 18 96 /20 04:30 87 18 91/60 L 95 20 04:20 91 H 20 95 07/20 04:10 83 15 93 07/2420 04:00 82 16 95/50 L 94 20 03:51 89 17 93 /20 03:49 85 17 93/55 L 94 20 03:40 83 15 93 07/20 03:30 85 14 93/51 L 93 /20 03:20 91 H 16 93 07/2420 03:10 92 H 19 94 20 03:06 94 20 03:05 92 H 18 95/56 L 94 20 03:00 91 H 17 95/56 L 94 20 02:55 91 H 19 95 20 02:51 93 H 16 95/50 L 95 20 01:43 97 H 20 96/64 L 95 /20 01:00 93 H 20 95 /24/20 00:22 37 C 103 H 20 99/59 L 98 Diagnostic Findings MRI of the lumbar spine performed is available for review. This reveals postoperative changes noted from L3 to the sacrum. The canal is widely patent there is no evidence of halos around the screws or loosening of the hardware. No evidence of infection. There is adjacent level disease with moderate to severe spinal stenosis at L2-3 above his fusion. No bony lesions are noted.
[2020-03-28] MEDS: PIPERACILLIN/TAZOBACTAM 3.375 GM in DEXTROSE 5% 100 ML IV SCH ×2 (10:02→17:00)
[2020-03-28] MEDS: DEXAMETHASONE SOD PHOSPHATE 4 MG in SYRINGE 0 ML IV SCH ×3 (10:06→23:44)
--- NOTE | 2020-03-28 10:36 | XRay Report ---
XR lumbar spine 2-3V CLINICAL HISTORY: back pain COMPARISON STUDY: Lumbar spine MRI March 28, 2020. FINDINGS: These images demonstrate L4-L5 and L5-S1 discectomies. There is a posterior decompression w ith bilateral pedicle screws at the L3, L4, L5 and S1 levels with interconnecting rods. Hardware is i ntact. Lumbar spine fracture is noted. Schmorl's node along the inferior endplate of L1 is noted. The focus of signal abnormality within the L1 vertebral body on MRI of March 28, 2020 is not evident on t his exam likely due to technique. The bowel gas pattern is normal. IMPRESSION: 1. Status post L4-L5 and L5-S1 discectomies with L3-S1 posterior decompression and bilateral pedicle screw fusion. 2. No acute lumbar spine fracture. 3. L1 vertebral body lesion shown on MRI performed earlier today is not evident on exam due to techni que. ACT 112: Negative or not required by law. Electronically signed by: Leoncio Lee M.D. 03/28/2020 10:35 AM
[2020-03-28] MEDS ORDERED: DEXAMETHASONE **PF** INJ 10 MG/ML VIAL IV SCH (11:00)
--- NOTE | 2020-03-28 11:36 | Pharmacy Report ---
Pharmacy Abx Initial Consult - Date of Service March 28, 2020 - Pharmacy Dosing Scope Date of Consult: 03/28 Consultation requested by: Dr. Winn Pharmacy is consulted to initiate vancomycin IV/PO dosing therapy, order appropriate labs and adjust drug dose/frequency. - Subjective The patient is a 49 year old M admitted on 03/28/20 05:14. - Objective Height: 5 ft 10 in Weight: 89.2 kg Vital Signs (Past 12hrs): Vital Signs Temp Pulse Pulse Resp BP BP Pulse Ox 03/28/20 07:47 92 H 03/28/20 07:07 36.6 C 83 18 103/69 98 03/28/20 06:33 79 18 95/56 L 94 03/28/20 06:32 85 18 95/56 L 95 03/28/20 06:30 82 15 95/56 L 95 03/28/20 06:20 81 14 95 03/28/20 06:10 88 18 96 03/28/20 06:00 80 15 97/60 L 97 03/28/20 05:50 83 15 95 03/28/20 05:40 86 20 95 03/28/20 05:30 82 14 94/55 L 94 03/28/20 05:20 84 15 94 03/28/20 05:10 82 15 92 03/28/20 05:04 90 16 96/58 L 96 03/28/20 05:00 86 14 96/58 L 94 03/28/20 04:50 87 15 96 03/28/20 04:40 84 18 96 03/28/20 04:30 87 18 91/60 L 95 03/28/20 04:20 91 H 20 95 03/28/20 04:10 83 15 93 03/28/20 04:00 82 16 95/50 L 94 03/28/20 03:51 89 17 93 03/28/20 03:49 85 17 93/55 L 94 03/28/20 03:40 83 15 93 03/28/20 03:30 85 14 93/51 L 93 03/28/20 03:20 91 H 16 93 03/28/20 03:10 92 H 19 94 03/28/20 03:06 94 03/28/20 03:05 92 H 18 95/56 L 94 03/28/20 03:00 91 H 17 95/56 L 94 03/28/20 02:55 91 H 19 95 03/28/20 02:51 93 H 16 95/50 L 95 03/28/20 01:43 97 H 20 96/64 L 95 03/28/20 01:00 93 H 20 95 03/28/20 00:22 37 C 103 H 20 99/59 L 98 Lab Results (24hrs): Laboratory Tests (24 Hours) 03/28/20 03/28/20 03/28/20 01:25 01:25 01:25 WBC 8.45 ESR 5 Creatinine 1.38 Est Cr Clr Drug Dosing 66.9 C-Reactive Protein 0.73 H Micro Results: 03/28/20 01:25 Aerobic Blood Culture - Pending Blood Anaerobic Blood Culture - Pending 03/28/20 01:20 Aerobic Blood Culture - Pending Blood Anaerobic Blood Culture - Pending - Risk Factors for Resistance * Immunocompromised (chronic steroid therapy, chemotherapy) - Assessment & Plan Assessment 49 year old male with PMHx of multiple myeloma, lumbar degenerative disc disease presenting with lower back pain. Concern for abdominal cellulitis. Started on vancomycin and zosyn. Plan Vancomycin IV * Received loading dose of vancomycin 1750 mg x 1 (~20 mg/kg/dose) * Started on vancomycin 1250 mg (~14 mcg/ml) iv q 12 hrs * Unclear of baseline renal function, based dosing off of current renal function and estimated kinetics. Dosing also correlates to vancomycin AUC dosing nomogram * Estimated kinetics: t1/2~11 hrs, ke~0.05 hr-1, CrCl ~66 ml/min * Plan to order trough if continued >48 hrs or sooner if renal function changes Piperacillin/tazobactam * 3.375 gm iv q 8 hrs - appropriate for CrCl >20 ml/min Pharmacy will continue to follow and will adjust dose/frequency as necessary. Thank you.
--- NOTE | 2020-03-28 16:00 | Electrocardiogram Report ---
Test Reason : Blood Pressure : / mmHG Vent. Rate : 096 BPM Atrial Rate : 096 BPM P-R Int : 130 ms QRS Dur : 090 ms QT Int : 358 ms P-R-T Axes : 046 017 024 degrees QTc Int : 452 ms Normal sinus rhythm RSR' or QR pattern in V1 suggests right ventricular conduction delay Possible Left atrial enlargement Borderline ECG When compared with ECG of 06-NOV-2012 12:30, No significant change was found Confirmed by Lucas Smith ([id number]) on 03/28/2020 3:59:56 PM Referred By: REFERRED SELF Confirmed By:Lucas Smith
[2020-03-28] MEDS: VANCOMYCIN HCL 1,250 MG in SODIUM CHLORIDE 0.9% 250 ML IV SCH (16:59)
[2020-03-29] MEDS: PIPERACILLIN/TAZOBACTAM 3.375 GM in DEXTROSE 5% 100 ML IV SCH (02:57)
[2020-03-29] MEDS: NSS + 20MEQ KCL 20 MEQ/1,000 ML BAG IV SCH (05:36)
[2020-03-29] MEDS: DEXAMETHASONE SOD PHOSPHATE 4 MG in SYRINGE 0 ML IV SCH (05:36)
[2020-03-29] MEDS: VANCOMYCIN HCL 1,250 MG in SODIUM CHLORIDE 0.9% 250 ML IV SCH (05:36)
[2020-03-29 05:59] LABS: Hemoglobin 10.2 g/dL (14.0-18.0); Mean Corpuscular Hemoglobin 32.9 pg (25-34); Mean Corpuscular Volume 96.8 fL (80-100); RDW Coefficient of Variation 13.9 % (11.5-14.5); RDW Standard Deviation 48.9 fL (36.4-46.3); White Blood Count 11.62 K/uL (4.8-10.8)
[2020-03-29 06:28] LABS: Basophils # (auto) 0.01 K/uL (0-0.2); Basophils % (auto) 0.1 %; Eosinophils # (auto) 0.01 K/uL (0-0.5); Eosinophils % (auto) 0.1 %; Immature Granulocytes # (auto) 0.14 K/uL (0.00-0.02); Immature Granulocytes % (auto) 1.2 %; Lymphocytes # (auto) 1.25 K/uL (1.2-3.4); Lymphocytes % (auto) 10.8 %; Mean Platelet Volume 10.9 fL (7.4-10.4); Monocytes % (auto) 4.3 %; Neutrophils # (auto) 9.71 K/uL (1.4-6.5); Neutrophils % (auto) 83.5 %; Platelet Count 97 K/uL (130-400); Platelet Estimate Decreased (Normal)
[2020-03-29 06:42] LABS: Albumin Level 2.7 gm/dl (3.4-5.0); BUN Creatinine Ratio 13.2 (10-20); Calcium 9.4 mg/dl (8.5-10.1); Creatinine Clr Calc Pharmacy 87.4 ml/min; Est GFR (African American) 86.1; Est GFR (Non-African American) 74.3; Magnesium 1.8 mg/dl (1.8-2.4); Phosphorus 4.9 mg/dl (2.5-4.9); Potassium 4.8 mmol/L (3.5-5.1)
[2020-03-29 07:54] VITALS: PULSE 78
[2020-03-29] MEDS: ASPIRIN 81 MG ECTAB PO SCH (08:23)
[2020-03-29] MEDS: ACYCLOVIR 400 MG TAB PO SCH (08:23)
[2020-03-29] MEDS: ENOXAPARIN INJ 40 MG/0.4 ML SYR SQ SCH (08:24)
[2020-03-29] MEDS: DOCUSATE SODIUM 100 MG CAP PO SCH (08:24)
[2020-03-29] MEDS: LENALIDOMIDE 25 MG PO SCH (08:25)
[2020-03-29 08:28] VITALS: BP 96/63; TEMP 98.2; O2SAT 97
--- NOTE | 2020-03-29 14:04 | Discharge Summary ---
Date of Service March 29, 2020 Admission HPI Per Admitting Provider The patient is a 49-year-old male with a past medical history including multiple myeloma, lumbar degenerative disc disease, and hemorrhoids. He received his first injection of Velcade on Tuesday, 4 days ago, and since that time has noted feelings of general malaise, and within the past 24 hours has developed acute onset of severe nonradiating low back pain. He denies any loss of bowel or bladder function. He has not had any recent injuries. He was also noted in the emergency department to have lower blood pressure than usual, with systolic blood pressure in the low 90s. He is receiving a second bag of normal saline, without significant improvement in blood pressure. He does look to have a cellulitis that just developed over the past 24 hours at his injection site. Principal Diagnosis Acute low back pain Discharge Exam Constitutional WD/WN, vitals as above Eyes PERRL, conjunctivae normal, anicteric sclerae ENMT external ear and nose normal, oropharynx normal Neck trachea midline, no thyromegaly Respiratory normal respiratory effort, lungs clear to auscultation Cardiovascular RRR, no murmur, no edema Gastrointestinal (Abdomen) normal bowel sounds, soft, nontender, no hepatosplenomegaly Musculoskeletal no cyanosis or clubbing, extremities motor strength 5/5 Skin no rashes, warm and dry + erythema (small, 2x1cm area of redness, left lower abdomen skin, injection site) Neurologic patellar DTR's 2+ bilat, sensation intact and PERRL, EOMI, accommodation nl, no face palsy, no dysarthria Psychiatric A+Ox3, euthymic affect Lymphatic no cervical or axillary lymphadenopathy Discharge Data Allergies Allergy/AdvReac Type Severity Reaction Status Date / Time No Known Allergies Allergy Unknown ` Verified 03/28/20 01:34 Consultations 03/28/20 03:58 ED Decision to Admit Stat 03/28/20 07:06 Consult Case Management - Discharge Planning Routine 03/28/20 07:43 Consult Orthopedic Surgery Routine Ordered Studies 03/28/20 00:47 MR lumbar spine wo/w con Urgent Hospital Course (1) Intractable low back pain: Intractable low back pain/multilevel lumbar degenerative disc disease/degenerative lumbar spinal stenosis/neuroforaminal stenosis/history L4/5 laminectomy- excellent response to Decadron, ambulating in the hallway MRI lumbar spine and lumbar x-ray without any critical findings, shows prior surgical changes no surgical needs per Dr. Barron recommends pain control, steroids, therapy, stay active much better today will send on Medrol dose pack, use Ultram PRN, ibuprofen, Tylenol instructed to not lift anything heavier than 5 lbs, do not bend at waist, do not twist follow up PCP (2) Disc degeneration, lumbar: See above (3) Degenerative lumbar spinal stenosis: See above (4) Neuroforaminal stenosis of lumbar spine: See above (5) Multiple myeloma: Follows with Dr. Barrios. Received his first Velcade injection 5 days ago on Tuesday. Continue acyclovir 40 mg p.o. twice daily and aspirin 81 mg daily follow up with Dr. Barrios this upcoming week (6) Hypotension: patient not alarmed, he always has low normal blood pressures no light headedness no further fluids needed (7) Cellulitis of left abdominal wall: At injection site, developed 3 days after injection. No sign of shingles, but will need to be monitored closely. Vancomycin IV and Zosyn IV in the hospital no fever, WBC stable will send on 7 day course of Keflex follow up with PCP Total Time Total Time Spent Total Time Spent (In Minutes): 32 minutes Total Time Includes: Examination of the Patient, Discharge Planning and Medication Reconciliation Discharge Plan Discharge Items Patient Disposition: Home - Self-Care Reason For Visit: INTRACTABLE LBP,HYPOTENSION,ABD WALL CELLULITIS Discharge Diagnosis: Acute back pain Multiple myeloma Abdominal wall cellulitis Condition on Discharge: Good Goals: improve back pain with medrol dose pack treat cellulitis with Keflex continue with treatment for Multiple Myeloma, follow up with Dr Barrios as scheduled Activity: Resume your previous activity Lifting: No more than 5 pounds Lifting Comment: do not bend at waist, do not bend and twist Bathing: No limitations Driving/Machine Use: Resume 1 day after discharge Weightbearing: Full weightbearing Non-emergency contact: Primary Care Provider Call non-emergency contact if: you have any medication questions and your symptoms worsen Follow-up/Referrals: Adrian Prince MD [Primary Care Provider] - (within one week) Diet: Regular Addtl Attending Provider Instructions: Medications: - MEDROL: follow the instructions on the dose gareth, to decrease inflammation in back - KEFLEX: take 500mg twice a day for 7 days, start this evening - ULTRAM: take as needed for back pain Ibuprofen: 600mg every 6 hours as needed for pain, take with food Tylenol: 650mg every 4 hours as needed for pain Low back pain: no severe issues seen on MRI lumbar spine, Dr. Barron recommends pain control, stay active Cellulitis: possible reaction to injection with some subsequent cellulitis no fever, skin looks better finish 7 days of Keflex Pending Studies at Discharge: No Stand-Alone Forms: My [facility], Smoking Cessation Medications and DC Order Prescriptions: New cephalexin [Keflex] 500 mg capsule 500 mg PO BID 7 Days Qty: 14 RF: 0 methylprednisolone [Medrol (Gareth)] 4 mg tablets,dose pack 4 mg PO UD Qty: 21 RF: 0 tramadol [Ultram] 50 mg tablet 50 mg PO Q8H PRN (Reason: pain) Qty: 20 RF: 0 Continued docusate sodium [Colace] 100 mg capsule 100 mg PO BID Qty: 60 RF: 1 acyclovir 400 mg Tablet 400 mg PO BID RF: 0 prochlorperazine maleate [Compazine] 10 mg Tablet 10 mg PO Q6H PRN (Reason: Nausea) RF: 0 aspirin [Aspirin Low Dose] 81 mg Tablet,Delayed Release (Dr/Ec) 81 mg PO DAILY RF: 0 dexamethasone 4 mg Tablet 4 mg PO DIRECTED RF: 0 Velcade 3.5 mg Recon Soln 0 mg DIRECTED RF: 0 Revlimid 25 mg Capsule 25 mg PO DIRECTED RF: 0 Discharge Orders: Discharge Order (Routine); Ordered 03/29/20 Ordered By: Ab Aguilar/Other Patient Handouts: Tramadol tablets, Cephalexin tablets or capsules, Methylprednisolone tablets Admission Data Admit Date/Time: 03/28/20 05:14 Attending Provider: Ab Lynch Admit Provider: Saran Winn Primary Care Provider: Adrian Prince Other Providers: Saran Winn ; Saman Barron Other Interventions: Discharge Summary Assessment (RN) Last Done: 03/29/20 09:28 DC Date/Time DO NOT enter until pt leaves facility: 03/29/20 10:26 Coding Level of Care Code D/C Day Management >30 mins Diagnoses Intractable low back pain M54.5 Disc degeneration, lumbar M51.36 Degenerative lumbar spinal stenosis M48.061 Neuroforaminal stenosis of lumbar spine M99.73 Multiple myeloma C90.00 Hypotension I95.9 Cellulitis of left abdominal wall L03.311
[2020-03-30] MEDS ORDERED: VANCOMYCIN TROUGH ONE (05:30)
== END 2020-03-29 10:26 | disposition home or self-care (01) ==
LOC: ED 00:15 → INTOOBSV 05:14 → SUATTDRO 05:14 → 2S 05:14

== ENCOUNTER 2020-04-11 20:41 | Inpatient (IN) ==
[2020-04-11] MEDS ORDERED: SODIUM CHLORIDE 0.9% 1000ML 1,000 ML IV SCH ×2 (21:15→23:42)
--- NOTE | 2020-04-11 21:36 | Emergency Department Note ---
Impression & Plan Acute dehydration, Acute renal failure ED Provider Note NAME: BRENDA MITCHELL AGE: 49 SEX: M : 1970 ARRIVES VIA: Walk-In INFORMANT: Patient, ED PROVIDER(S): Lucas Owens DO CHIEF COMPLAINT: Generalized weakness HPI: The patient is a 49-year-old male who presented to the emergency department for an evaluation of generalized weakness. The patient has been having problems with diarrhea and abdominal pain. He also has low back pain. He was diagnosed with multiple myeloma and has been receiving chemotherapy. The patient states that he had a low-grade fever at home of 100.4 degrees. He called his oncologist and was sent to the emergency department for evaluation and for IV fluids. The patient has become very dehydrated recently. He has decreased p.o. intake. He has been noticed to have dizziness upon standing and palpitations. He has noticed some bright rectal bleeding but he states that he has a history of a fissure and this is consistent with his history of fissure bleeding. ROS: See above HPI for pertinent positives & negatives. A total of 10 systems reviewed and were otherwise negative. PAST MEDICAL HISTORY: See Below PAST SURGICAL HISTORY: See Below FAMILY HISTORY: See Below SOCIAL HISTORY: See Below HOME MEDICATIONS: See Below ALLERGIES: See Below VITALS: See Below PHYSICAL EXAMINATION: GENERAL: The patient is listless. He does not appear to be uncomfortable but does appear to be somewhat frail. EYES: The conjunctivae are clear. The pupils are round and reactive. EARS, NOSE, MOUTH AND THROAT: The nose is without any evidence of any deformity. Mucous membranes are dry. NECK: The neck is nontender and supple. RESPIRATORY: Normal respiratory effort is noted there is no evidence of wheezing rhonchi or rales CARDIOVASCULAR: Regular rate and rhythm noted there no murmurs rubs or gallops normal S1 normal S2. GASTROINTESTINAL: The abdomen was mildly distended but soft. There was diffuse tenderness to palpation but no guarding or rigidity. MUSCULOSKELETAL/EXTREMITIES: There is no evidence of gross deformity full range of motion is noted in the hips and shoulders. SKIN: There is no obvious evidence of any rash. Trace pedal edema was noted. NEUROLOGIC: Patient is awake alert and oriented x3 strength is symmetric patellar reflexes are 2+ bilaterally MEDICAL DECISION MAKING: The patient is a 49-year-old male who has a history of multiple myeloma. He is currently receiving chemotherapy. He has been having problems with decreased p.o. intake as well as loose bowel movements. The patient was treated with IV fluids in the emergency department. Initially he was found to have hypotension. Laboratory studies revealed a significant elevation in his creatinine compared to baseline. His potassium was normal. He has no acute changes on EKG. I discussed the patient's laboratory and radiographic studies with him. I also discussed his case with the on-call [facility] hospitalist. They have agreed to evaluate the patient in the emergency department for further management and disposition. The patient was feeling much better on subsequent reevaluation. Triage Nursing notes reviewed. Prior medical records reviewed Vital Signs: reviewed and remarkable for hypotension Differential diagnosis: Infection, dehydration, metabolic abnormality, hypo/hyperglycemia, electrolyte disturbance, anemia, hypoxia, cardiac sources, intracerebral event, toxicologic, neurologic, as well as other pathologies. ER treatment provided: See below Diagnostics interpreted by me: ECG: EKG was obtained in the emergency department. My interpretation is normal sinus rhythm at 92 bpm. There was no ectopy. There is no acute ST segment abnormalities noted. This was compared to a tracing from March 282019. No significant changes were noted. Cardiac Monitoring: An order was placed for continuous cardiac monitoring. The monitor shows a rate of 85 with sinus rhythm. Laboratory studies: As stated above and show below. Imaging studies: See below Consultation(s): 2251: I discussed this case with Dr. Gómez. Past Med/Surg History Medical History Degenerative lumbar spinal stenosis Disc degeneration, lumbar Hemorrhoid Multiple myeloma (Acute) Neuroforaminal stenosis of lumbar spine Surgical History History of lumbar surgery 2014 Family History Grandfather (Maternal) Stroke Denies family history of Ovarian cancer Prostate cancer Myocardial infarction Breast cancer Colorectal cancer Lung disease Social History Smoking Status: Never smoker Second Hand Exposure: No; Hx Alcohol Use: Yes Alcohol type: beer Hx Substance Use: No Preferred Language: Mongolian Communication Ability: Effective Visual Impairment: No Limitations Hearing Ability: Normal Rehabilitation Services Aide Required: No Beliefs That Will Affect Care: None Current Living Situation: Spouse current occupational status: employed current occupation: [employer] Feels Safe at Home: Yes Childhood Exposure to Second-Hand Smoke: No Allergies Allergies Allergy/AdvReac Type Severity Reaction Status Date / Time No Known Allergies Allergy Verified 04/11/20 22:18 Home Meds Home Medications Medication Instructions Recorded Confirmed Revlimid 25 mg PO DIRECTED 03/28/20 04/11/20 Velcade See Rx Instructions .ROUTE .COMPLEX 03/28/20 04/11/20 acyclovir 400 mg PO BID 03/28/20 04/11/20 aspirin [Aspirin Low Dose] 81 mg PO DAILY 03/28/20 04/11/20 dexamethasone See Rx Instructions .ROUTE .COMPLEX 03/28/20 04/11/20 prochlorperazine maleate 10 mg PO Q6H PRN 03/28/20 04/11/20 [Compazine] dronabinol 5 mg PO AC 04/11/20 04/11/20 tramadol [Ultram] 50 mg PO Q8H PRN 04/11/20 04/11/20 Previous Rx's Medication Instructions Recorded docusate sodium 100 mg capsule 100 mg PO BID #60 cap 03/13/20 Results & Data (ED) Vital Signs Vital Signs - 24 hr 04/11/20 20:49 04/11/20 21:42 04/11/20 22:01 Temperature 37.2 C Temperature Source Oral Pulse Rate 93 H Pulse Rate [Right Finger] 93 H Pulse Rhythm Regular Pulse Strength Normal Respiratory Rate 16 18 Respiratory Depth Normal Blood Pressure 92/53 L Blood Pressure [Left Arm] 97/50 L Blood Pressure Mean 66 Blood Pressure Mean [Left Arm] 65 Blood Pressure Position Sitting Blood Pressure Position [Left Arm] Sitting Pulse Oximetry 100 96 Oxygen Delivery Method Room Air Room Air Room Air Sepsis Recent Fever Within 48 Hours No Sepsis New/Unexplained Change in Mental Status N/A Sepsis Action Taken by Nursing No Action Required Home Medications Current Medication List: was personally reviewed by me Laboratory Data Attestation: I reviewed the patient's lab results. Result diagrams: 04/11/20 21:36 04/11/20 21:36 Lab Results 04/11/20 04/11/20 04/11/20 Range/Units 21:36 21:36 21:36 WBC 7.40 (4.8-10.8) K/uL RBC 3.05 L (4.7-6.1) M/uL Hgb 10.1 L (14.0-18.0) g/dL Hct 29.1 L (42-52) % MCV 95.4 (80-100) fL MCH 33.1 (25-34) pg MCHC 34.7 (32-36) g/dL RDW Std Deviation 51.0 H (36.4-46.3) fL RDW Coeff of Regnia 14.7 H (11.5-14.5) % Plt Count 62 L (130-400) K/uL MPV 12.0 H (7.4-10.4) fL Immature Gran % (Auto) 0.5 % Neut % (Auto) 68.1 % Lymph % (Auto) 15.9 % [place] % (Auto) 6.8 % Eos % (Auto) 8.6 % Baso % (Auto) 0.1 % Neut # (Auto) 5.03 (1.4-6.5) K/uL Lymph # (Auto) 1.18 L (1.2-3.4) K/uL [place] # (Auto) 0.50 (0.11-0.59) K/uL Eos # (Auto) 0.64 H (0-0.5) K/uL Baso # (Auto) 0.01 (0-0.2) K/uL Immature Gran # (Auto) 0.04 H (0.00-0.02) K/uL Dohle Bodies 1+ Platelet Estimate Decreased L (Normal) Giant Platelets 1+ Echinocytes 1+ PT 12.6 H (9.0-12.0) Seconds INR 1.2 H (0.9-1.1) APTT 28.8 (21.0-31.0) Seconds PTT Ratio 1.0 Sodium 133 L (136-145) mmol/L Potassium 4.4 (3.5-5.1) mmol/L Chloride 102 (98-107) mmol/L Carbon Dioxide 19 L (21-32) mmol/L Anion Gap 12.0 H (3-11) BUN 61 H (7-18) mg/dl Creatinine 6.61 H* (0.6-1.4) mg/dl Est Cr Clr Drug Dosing 14.0 ml/min Est GFR ( Amer) 10.4 Est GFR (Non-Af Amer) 9.0 BUN/Creatinine Ratio 9.0 L (10-20) Glucose 102 H (70-99) mg/dl Calcium 6.0 L (8.5-10.1) mg/dl Magnesium 3.2 H (1.8-2.4) mg/dl Total Bilirubin 0.6 (0.2-1) mg/dl AST 21 (15-37) U/L ALT 29 (12-78) U/L Alkaline Phosphatase 108 (45-117) U/L Troponin I < 0.015 (0-0.045) ng/ml Total Protein 5.9 L (6.4-8.2) gm/dl Albumin 2.7 L (3.4-5.0) gm/dl Globulin 3.1 (2.5-4.0) gm/dl Albumin/Globulin Ratio 0.9 (0.9-2) TSH 0.290 L (0.300-4.500) uIu/ml Free T4 1.53 (0.8-1.6) ng/dl Administered Medications Discontinued Medications Sodium Chloride (Nss 1000ml) 1,000 mls @ 999 mls/hr IV .Q1H1M NAVEEN Stop: 04/11/20 22:15 Last Infusion: 04/11/20 22:44 Dose: 0 mls/hr Documented by: [id number] Admin: 04/11/20 21:43 Dose: 999 mls/hr Documented by: [id number] Imaging Data Attestation: I personally reviewed and interpreted this imaging study as follows: My Impression: 1 view of the chest was obtained in the emergency department. There was a soft tissue density in the left upper lobe. Interstitial prominence was noted. No free air was noted. This was compared to a chest x-ray from March 28, 2020. No specific changes were noted. Radiologist's Impression: Preliminary Findings Only See Final Report For Complete Findings CT ABDOMEN & PELVIS Without Contrast: Partially imaged expansile lytic lesion of the right scapula, grossly similar to CT abdomen and pelvis of 02/21/20. If not previously performed, consider biopsy. Subsegmental atelectasis at the lung bases. Small sliding-type hiatal hernia. Hepatic steatosis. Contracted gallbladder. Splenomegaly measuring 14 cm. Pancreas and adrenal glands are unremarkable. No hydronephrosis or radiopaque urinary stones. Normal appendix. No bowel obstruction or inflammation. Urinary bladder and prostate are normal. No acute osseous findings. Chronic L1 inferior endplate compression fracture versus prominent Schmorl's node. Postoperative changes of the lumbar spine consisting of posterior hardware fixation and osseous from L3-S1, posterior decompression at L4 and L5, and interbody fusion at L4-L5 and L5-S1. Radiologist: Dawit Fleming M.D. Study ready at 22:12 and initial results transmitted at 22:16 Blood Pressure Blood Pressure Findings: Low blood pressure Discharge Plan Visit Data Chief Complaint: Dehydration Stated Complaint: CANCER PATIENT, DEHYDRATED ED Provider: Lucas Owens Discharge Problem: Acute dehydration, Acute renal failure Patient Disposition: Being Evaluated by Hospitalist Condition: Good Forms Stand Alone Forms: [facility] Prescriptions Prescriptions: No Action docusate sodium [Colace] 100 mg capsule 100 mg PO BID Qty: 60 RF: 1 acyclovir 400 mg Tablet 400 mg PO BID RF: 0 prochlorperazine maleate [Compazine] 10 mg Tablet 10 mg PO Q6H PRN (Reason: Nausea) RF: 0 aspirin [Aspirin Low Dose] 81 mg Tablet,Delayed Release (Dr/Ec) 81 mg PO DAILY RF: 0 dexamethasone 4 mg Tablet See Rx Instructions .ROUTE .COMPLEX RF: 0 Velcade 3.5 mg Recon Soln See Rx Instructions .ROUTE .COMPLEX RF: 0 Revlimid 25 mg Capsule 25 mg PO DIRECTED RF: 0 dronabinol 5 mg Capsule 5 mg PO AC RF: 0 tramadol [Ultram] 50 mg tablet 50 mg PO Q8H PRN (Reason: Pain) RF: 0 Referrals Referrals: Adrian Prince MD [Primary Care Provider] - Discharge Problem: Acute renal failure Qualifiers: Acute renal failure type: unspecified Qualified Code(s): N17.9 - Acute kidney failure, unspecified
[2020-04-11 21:52] LABS: Hematocrit (blood only) 29.1 % (42-52); Hemoglobin 10.1 g/dL (14.0-18.0); Mean Corpuscular Hemoglobin 33.1 pg (25-34); Mean Corpuscular Hgb Conc 34.7 g/dL (32-36); Mean Corpuscular Volume 95.4 fL (80-100); RDW Coefficient of Variation 14.7 % (11.5-14.5); Red Blood Count 3.05 M/uL (4.7-6.1)
[2020-04-11 22:10] LABS: INR 1.2 (0.9-1.1); Partial Thromboplastin Time 28.8 Seconds (21.0-31.0); Prothrombin Time 12.6 Seconds (9.0-12.0)
[2020-04-11 22:17] LABS: Alanine Aminotransferase 29 U/L (12-78); Albumin Globulin Ratio 0.9 (0.9-2); Albumin Level 2.7 gm/dl (3.4-5.0); Alkaline Phosphatase 108 U/L (45-117); Aspartate Aminotransferase 21 U/L (15-37); Bilirubin,Total 0.6 mg/dl (0.2-1); Blood Urea Nitrogen 61 mg/dl (7-18); Carbon Dioxide 19 mmol/L (21-32); Chloride 102 mmol/L (98-107); Est GFR (African American) 10.4; Globulin 3.1 gm/dl (2.5-4.0); Glucose 102 mg/dl (70-99); Magnesium 3.2 mg/dl (1.8-2.4); Potassium 4.4 mmol/L (3.5-5.1); Sodium 133 mmol/L (136-145); Total Protein 5.9 gm/dl (6.4-8.2); Troponin I < 0.015 ng/ml (0-0.045)
[2020-04-11] MEDS ORDERED: SODIUM CHLORIDE 0.9% 1000ML 1,000 ML IV ONE (22:24)
[2020-04-11 22:32] LABS: Platelet Count 62 K/uL (130-400); T4 Free Thyroxine 1.53 ng/dl (0.8-1.6)
[2020-04-11 22:33] LABS: Basophils # (auto) 0.01 K/uL (0-0.2); Basophils % (auto) 0.1 %; Dohle Bodies 1+; Echinocytes 1+; Eosinophils # (auto) 0.64 K/uL (0-0.5); Eosinophils % (auto) 8.6 %; Immature Granulocytes # (auto) 0.04 K/uL (0.00-0.02); Immature Granulocytes % (auto) 0.5 %; Lymphocytes # (auto) 1.18 K/uL (1.2-3.4); Lymphocytes % (auto) 15.9 %; Monocytes % (auto) 6.8 %; Neutrophils # (auto) 5.03 K/uL (1.4-6.5); Neutrophils % (auto) 68.1 %; Platelet Estimate Decreased (Normal)
[2020-04-11 22:42] LABS: Giant Platelets 1+
--- NOTE | 2020-04-12 00:25 | History & Physical Report ---
Date of Service April 12, 2020 The patient was seen and examined on 04/11/2020 Assessment & Plan (1) Acute renal failure: Acute renal failure secondary to acute dehydration/associated with diarrhea and chemotherapy side effect- Creatinine 6.61 upon admission, with baseline around 1.3. Significant prerenal state secondary to decreased oral intake and increased fluid loss through diarrhea. Expect to improve with IV fluid rehydration. CT scan without abnormalities of kidneys ureter and bladder system. Serial BMP and magnesium levels Consult nephrology, discussed case with Dr. Akers Present on Admission?: Yes (2) Acute dehydration: See above Present on Admission?: Yes (3) Multiple myeloma: On chemotherapy Velcade and Revlimid. Present on Admission?: Yes (4) Diarrhea: Send stool for C. difficile and culture. Start cholestyramine 4 g p.o. twice daily Present on Admission?: Yes (5) Decreased appetite: Appetite suppression secondary to chemotherapy. Continue dronabinol. 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 Has not been on any antibiotics due to no signs of infection. Has primarily been treated with the barrier cream. I have asked his to bring the cream in. Try to decrease diarrhea with cholestyramine, to minimize the potential for infection. Present on Admission?: Yes History of Present Illness Chief Complaint: The patient presents to the ED with complaint of generalized weakness, diarrhea associated with chemotherapy, and decreased oral intake due to decreased appetite. Primary Care Provider: Adrian Prince MD The patient is a 49-year-old male with a past medical history significant for multiple myeloma on chemotherapy, who presents to the emergency department with the symptoms as noted above. He has not had any recent travels or sick exposures. In the emergency department, work-up included laboratories suggestive of acute renal failure, with creatinine 6.61, and CT abdomen pelvis without contrast suggesting no hydronephrosis no urinary radiopaque stones no suggestion of bowel obstruction or inflammation and normal urinary bladder and prostate. Allergies Allergy/AdvReac Type Severity Reaction Status Date / Time No Known Allergies Allergy Verified 04/11/20 22:18 Home Medications Home Medications Medication Instructions Recorded Confirmed Type docusate sodium 100 mg capsule 100 mg PO BID #60 cap 03/13/20 04/11/20 Rx Revlimid 25 mg PO DIRECTED 03/28/20 04/11/20 History Velcade See Rx Instructions .ROUTE .COMPLEX 03/28/20 04/11/20 History acyclovir 400 mg PO BID 03/28/20 04/11/20 History aspirin [Aspirin Low Dose] 81 mg PO DAILY 03/28/20 04/11/20 History dexamethasone See Rx Instructions .ROUTE .COMPLEX 03/28/20 04/11/20 History prochlorperazine maleate 10 mg PO Q6H PRN 03/28/20 04/11/20 History [Compazine] dronabinol 5 mg PO AC 04/11/20 04/11/20 History tramadol [Ultram] 50 mg PO Q8H PRN 04/11/20 04/11/20 History Past Med/Surg History Medical History Degenerative lumbar spinal stenosis Disc degeneration, lumbar Hemorrhoid Multiple myeloma (Acute) Neuroforaminal stenosis of lumbar spine Surgical History History of lumbar surgery 2014 Family History Grandfather (Maternal) Stroke Denies family history of Ovarian cancer Prostate cancer Myocardial infarction Breast cancer Colorectal cancer Lung disease Social History Smoking Status: Never smoker Second Hand Exposure: No; Hx Alcohol Use: Yes Alcohol type: beer Hx Substance Use: No Preferred Language: Estonian Communication Ability: Effective Visual Impairment: No Limitations Hearing Ability: Normal 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 Beliefs That Will Affect Care: None Current Living Situation: Spouse current occupational status: employed current occupation: [employer] Feels Safe at Home: Yes Childhood Exposure to Second-Hand Smoke: No Review of Systems Review of Systems: The patient denies chest pain, palpitations, shortness of breath, dyspnea on exertion, cough, lower extremity swelling, sore throat, fevers, chills, sweats, vomiting, diarrhea , constipation, abdominal pain, pelvic pain, blood in urine or stool, dysuria, urinary frequency or urgency, lightheadedness, dizziness, headache, memory loss, loss of consciousness, rash, abnormal bruising or bleeding, imbalance, focal weakness, numbness or tingling in arms or legs, generalized arthralgias or myalgias, back or neck pain, or night sweats. The review of systems is otherwise negative other than for that already noted above, and at least 10 systems have been reviewed. Physical Exam Physical Exam: The patient is awake, alert and oriented 3, well developed and well nourished, normocephalic and atraumatic, lying in bed and in no acute distress. HEENT--PERRL, EOMI, mucous membranes and oropharynx dry. Neck--supple. No JVD. No bruits. Thyroid normal, trachea midline, no adenopathy. Heart--normal S1 and S2. No murmurs, rubs or gallops. Lungs--clear bilaterally, no respiratory distress, no accessory muscle use. Abdomen--normal bowel sounds and soft. Nontender. Nondistended. Extremities--no cyanosis or clubbing. No edema. There are good distal pulses b/l. Dermatologic--normal skin turgor, normal color, no abnormal lymph nodes, no rash. Neurologic--cranial nerves II through XII grossly intact. Rheumatologic--normal range of motion. Psychiatric--normal affect. Results & Data Results & Data ([facility]) Vital Signs (Past 12 Hours) Vital Signs Temp Pulse Pulse Resp BP BP Pulse Ox 04/11/20 23:43 87 18 110/57 L 96 04/11/20 22:01 93 H 18 97/50 L 96 04/11/20 20:49 99.0 F 93 H 16 92/53 L 100 Laboratory Results Laboratory Results WBC 7.40 K/uL (4.8-10.8) 04/11/20 21:36 RBC 3.05 M/uL (4.7-6.1) L 04/11/20 21:36 Hgb 10.1 g/dL (14.0-18.0) L 04/11/20 21:36 Hct 29.1 % (42-52) L 04/11/20 21:36 MCV 95.4 fL (80-100) 04/11/20 21:36 MCH 33.1 pg (25-34) 04/11/20 21:36 MCHC 34.7 g/dL (32-36) 04/11/20 21:36 RDW Std Deviation 51.0 fL (36.4-46.3) H 04/11/20 21:36 RDW Coeff of Regina 14.7 % (11.5-14.5) H 04/11/20 21:36 Plt Count 62 K/uL (130-400) L 04/11/20 21:36 MPV 12.0 fL (7.4-10.4) H 04/11/20 21:36 Immature Gran % (Auto) 0.5 % 04/11/20 21:36 Neut % (Auto) 68.1 % 04/11/20 21:36 Lymph % (Auto) 15.9 % 04/11/20 21:36 Haywood % (Auto) 6.8 % 04/11/20 21:36 Eos % (Auto) 8.6 % 04/11/20 21:36 Baso % (Auto) 0.1 % 04/11/20 21:36 Neut # (Auto) 5.03 K/uL (1.4-6.5) 04/11/20 21:36 Lymph # (Auto) 1.18 K/uL (1.2-3.4) L 04/11/20 21:36 Haywood # (Auto) 0.50 K/uL (0.11-0.59) 04/11/20 21:36 Eos # (Auto) 0.64 K/uL (0-0.5) H 04/11/20 21:36 Baso # (Auto) 0.01 K/uL (0-0.2) 04/11/20 21:36 Immature Gran # (Auto) 0.04 K/uL (0.00-0.02) H 04/11/20 21:36 Dohle Bodies 1+ 04/11/20 21:36 Platelet Estimate Decreased (Normal) L 04/11/20 21:36 Giant Platelets 1+ 04/11/20 21:36 Echinocytes 1+ 04/11/20 21:36 PT 12.6 Seconds (9.0-12.0) H 04/11/20 21:36 INR 1.2 (0.9-1.1) H 04/11/20 21:36 APTT 28.8 Seconds (21.0-31.0) 04/11/20 21:36 PTT Ratio 1.0 04/11/20 21:36 Sodium 133 mmol/L (136-145) L 04/11/20 21:36 Potassium 4.4 mmol/L (3.5-5.1) 04/11/20 21:36 Chloride 102 mmol/L (98-107) 04/11/20 21:36 Carbon Dioxide 19 mmol/L (21-32) L 04/11/20 21:36 Anion Gap 12.0 (3-11) H 04/11/20 21:36 BUN 61 mg/dl (7-18) H 04/11/20 21:36 Creatinine 6.61 mg/dl (0.6-1.4) H* 04/11/20 21:36 Est Cr Clr Drug Dosing 14.0 ml/min 04/11/20 21:36 Est GFR ( Amer) 10.4 04/11/20 21:36 Est GFR (Non-Af Amer) 9.0 04/11/20 21:36 BUN/Creatinine Ratio 9.0 (10-20) L 04/11/20 21:36 Glucose 102 mg/dl (70-99) H 04/11/20 21:36 Calcium 6.0 mg/dl (8.5-10.1) L 04/11/20 21:36 Magnesium 3.2 mg/dl (1.8-2.4) H 04/11/20 21:36 Total Bilirubin 0.6 mg/dl (0.2-1) 04/11/20 21:36 AST 21 U/L (15-37) 04/11/20 21:36 ALT 29 U/L (12-78) 04/11/20 21:36 Alkaline Phosphatase 108 U/L (45-117) 04/11/20 21:36 Troponin I < 0.015 ng/ml (0-0.045) 04/11/20 21:36 Total Protein 5.9 gm/dl (6.4-8.2) L 04/11/20 21:36 Albumin 2.7 gm/dl (3.4-5.0) L 04/11/20 21:36 Globulin 3.1 gm/dl (2.5-4.0) 04/11/20 21:36 Albumin/Globulin Ratio 0.9 (0.9-2) 04/11/20 21:36 TSH 0.290 uIu/ml (0.300-4.500) L 04/11/20 21:36 Free T4 1.53 ng/dl (0.8-1.6) 04/11/20 21:36 Diagnostic Findings [facility] Patient: BRENDA MITCHELL (Male) : 70 Status: ER Date: 04/11/20 21:54 Room #: History: bilateral flank pain Slices: [id number] Priors: Tech: Terrell Arriaga @ [id number] Exams: CT ABDOMEN & PELVIS Without Contrast Contrast: Accession Numbers: [id number] Preliminary Findings Only See Final Report For Complete Findings CT ABDOMEN & PELVIS Without Contrast: Partially imaged expansile lytic lesion of the right scapula, grossly similar to CT abdomen and pelvis of 02/21/20. If not previously performed, consider biopsy. Subsegmental atelectasis at the lung bases. Small sliding-type hiatal hernia. Hepatic steatosis. Contracted gallbladder. Splenomegaly measuring 14 cm. Pancreas and adrenal glands are unremarkable. No hydronephrosis or radiopaque urinary stones. Normal appendix. No bowel obstruction or inflammation. Urinary bladder and prostate are normal. No acute osseous findings. Chronic L1 inferior endplate compression fracture versus prominent Schmorl's node. Postoperative changes of the lumbar spine consisting of posterior hardware fixation and osseous from L3-S1, posterior decompression at L4 and L5, and interbody fusion at L4-L5 and L5-S1. Radiologist: Dawit Fleming M.D. Study ready at 22:12 and initial results transmitted at 22:16 *This report constitutes a preliminary interpretation only. Non-acute findings felt to be unrelated to the clinical presentation may not be discussed in this report. The study will be interpreted and a final report will be generated by the local Radiologist the following shift. To reach the hospital radiology department call [phone]. If a discrepancy is found between the preliminary and final interpretations of this study, please notify us via our Client Portal at [email or web address] under QA Exams.You can also fax this report with a description of the discrepancy, or include the final report, to our daytime fax number [phone].If faxing, please indicate the severity of discrepancy using one of the following categories: [ ] 1 - Agree/Informational [ ] 2 - Unlikely to Affect Management [ ] 3 - Possible Eventual Change of Management [ ] 4 - Probable Immediate Change of Management For all other patient related information, please fax us at [phone]. [id number] Code Status & VTE Plan Code Status Full code VTE Prophylaxis Plan VTE Prophylaxis will be ordered: Yes PG Care Time/CCT Total # of Minutes Spent Total Time Spent with Patient: Total time spent is greater than 50% in coordination of care (as documented) at patient's floor/unit and/or counseling patient: Coding Level of Care Code 33250 Initial Inpt Care Lvl 3 Diagnoses Acute renal failure N17.9 Acute renal failure type: unspecified Acute dehydration E86.0 Multiple myeloma C90.00 Diarrhea R19.7 Decreased appetite R63.0 Chronic rectal fissure K60.1 (1) Acute renal failure Acute renal failure type: unspecified Qualified Code(s): N17.9 - Acute kidney failure, unspecified
[2020-04-12] MEDS ORDERED: ACETAMINOPHEN 325 MG TAB PO PRN (01:06)
[2020-04-12] MEDS ORDERED: TRAMADOL HCL 50 MG TABLET PO PRN (01:06)
[2020-04-12] MEDS ORDERED: ONDANSETRON INJ 2 MG/ML 2 ML VIAL IV PRN (01:06)
[2020-04-12] MEDS ORDERED: STAT IV STA (01:13)
[2020-04-12 02:06] LABS: BUN Creatinine Ratio 9.1 (10-20); Calcium 5.2 mg/dl (8.5-10.1); Creatinine Clr Calc Pharmacy 14.1 ml/min; Est GFR (African American) 10.5; Est GFR (Non-African American) 9.1; Potassium 4.6 mmol/L (3.5-5.1)
[2020-04-12] MEDS: SODIUM BICARBONATE 8.4% 75 MEQ in DEXTROSE 5% 1,000 ML IV SCH ×3 (02:26→13:10)
[2020-04-12] MEDS: ACYCLOVIR 400 MG TAB PO SCH ×2 (02:29→08:11)
--- NOTE | 2020-04-12 06:00 | XRay Report ---
XR chest 1V portable CLINICAL HISTORY: weakness COMPARISON STUDY: 03/28/2020 FINDINGS: Unchanged pleural-based lesion involving left pulmonary apex. This appearance seen previous ly. The lungs are clear. Diaphragms are smooth. IMPRESSION: Chronic left apical mass. No acute process throughout remainder the chest. ACT 112: Negative or not required by law. The above report was generated using voice recognition software. It may contain grammatical, syntax or spelling errors. Electronically signed by: Jung Bliss M.D. 04/12/2020 5:58 AM
--- NOTE | 2020-04-12 06:28 | CT Scan Report ---
CT abd pelvis wo con CT DOSE: 512.16 mGy.cm HISTORY: Flank pain flank pain TECHNIQUE: Multiaxial CT images of the abdomen and pelvis were performed without contrast. A dose lo wering technique was utilized adhering to the principles of ALARA. COMPARISON STUDY: None. FINDINGS: Expansile destructive lesion of the right scapula. This is identified on a CT dated 02/21/20 20 oh that study was performed at an outside institution and is not available. Biopsy should be consi dered with this is not been performed. Gallbladder is contracted. Mild splenomegaly. Nonobstructive bowel pattern. Trace perinephric infiltrative change most likely chronic. No evidence for an obstructing urinary tract calculus. Stable postoperative changes to the lumbar spine. IMPRESSION: 1. Destructive lytic lesion of the lateral right scapula with biopsy recommended if this has not been performed. 2. Nonobstructive bowel pattern. 3. No acute process of the abdomen or pelvis. ACT 112: Negative or not required by law. The above report was generated using voice recognition software. It may contain grammatical, syntax or spelling errors. Electronically signed by: Jung Bliss M.D. 04/12/2020 6:27 AM
[2020-04-12 07:40] LABS: Hematocrit (blood only) 24.6 % (42-52); Hemoglobin 8.7 g/dL (14.0-18.0); Mean Corpuscular Hemoglobin 33.3 pg (25-34); Mean Corpuscular Hgb Conc 35.4 g/dL (32-36); Mean Corpuscular Volume 94.3 fL (80-100); RDW Coefficient of Variation 14.8 % (11.5-14.5); RDW Standard Deviation 51.2 fL (36.4-46.3); Red Blood Count 2.61 M/uL (4.7-6.1); White Blood Count 5.39 K/uL (4.8-10.8)
[2020-04-12 07:52] LABS: Mean Platelet Volume 11.7 fL (7.4-10.4); Platelet Count 50 K/uL (130-400)
[2020-04-12 08:17] LABS: BUN Creatinine Ratio 8.9 (10-20); Creatinine Clr Calc Pharmacy 12.9 ml/min; Est GFR (African American) 9.5; Est GFR (Non-African American) 8.2; Potassium 4.4 mmol/L (3.5-5.1)
[2020-04-12 08:19] LABS: Basophils # (auto) 0.01 K/uL (0-0.2); Basophils % (auto) 0.2 %; Eosinophils # (auto) 0.52 K/uL (0-0.5); Eosinophils % (auto) 9.6 %; Immature Granulocytes # (auto) 0.03 K/uL (0.00-0.02); Immature Granulocytes % (auto) 0.6 %; Lymphocytes # (auto) 0.88 K/uL (1.2-3.4); Lymphocytes % (auto) 16.3 %; Monocytes # (auto) 0.55 K/uL (0.11-0.59); Monocytes % (auto) 10.2 %; Neutrophils % (auto) 63.1 %
[2020-04-12] MEDS ORDERED: ASPIRIN 81 MG ECTAB PO SCH (09:00)
[2020-04-12] MEDS ORDERED: CALCIUM GLUCONATE 10% 2,000 MG in SODIUM CHLORIDE 0.9% 50 ML IV ONE ×3 (09:00→14:45)
--- NOTE | 2020-04-12 09:49 | Discharge Summary ---
Date of Service April 12, 2020 Admission HPI Per Admitting Provider The patient is a 49-year-old male with a past medical history significant for multiple myeloma on chemotherapy, who presents to the emergency department with the symptoms as noted above. He has not had any recent travels or sick exposures. In the emergency department, work-up included laboratories suggestive of acute renal failure, with creatinine 6.61, and CT abdomen pelvis without contrast suggesting no hydronephrosis no urinary radiopaque stones no suggestion of bowel obstruction or inflammation and normal urinary bladder and prostate. Principal Diagnosis Multiple myeloma with acute renal failure Discharge Exam Constitutional + ill appearing, + frail appearing and + malnourished; no acute distress and + not appropriately hydrated Eyes PERRL, conjunctivae normal, anicteric sclerae ENMT external ear and nose normal, oropharynx normal Neck trachea midline, no thyromegaly Respiratory normal respiratory effort, lungs clear to auscultation Cardiovascular RRR, no murmur, no edema Gastrointestinal (Abdomen) normal bowel sounds, soft, nontender, no hepatosplenomegaly Musculoskeletal Head/Neck/Chest: normocephalic, head atraumatic and neck supple Spine: + lumbar spinal tenderness Extremities: + abnormal strength (generalized weakness) Skin + turgor decreased and + pallor; no rashes and no erythema Neurologic patellar DTR's 2+ bilat, sensation intact and PERRL, EOMI, accommodation nl, no face palsy, no dysarthria Psychiatric A+Ox3, euthymic affect Lymphatic no cervical or axillary lymphadenopathy Discharge Data Allergies Allergy/AdvReac Type Severity Reaction Status Date / Time No Known Allergies Allergy Verified 04/11/20 22:18 Consultations 04/11/20 22:49 ED Decision to Admit Stat 04/12/20 01:06 Consult Case Management - Discharge Planning Routine 04/12/20 08:30 Consult Nephrology Routine Ordered Studies 04/11/20 21:19 CT abd pelvis wo con Urgent Hospital Course (1) Acute renal failure: presented with Cr of 6, last time check as outpatient was on 04/07 and it was 1.57 he has been getting IV fluids as outpatient received over 4 liters of fluid since admission and Cr sung to 7.1, BUN 63 K is 4.4, phos elevated at 5.0, Ca low at 5.0 no signs of uremia, BP is low in the 90's systolic but this is his baseline has not made urine since yesterday morning, feels like he might have to go soon but has not made 75cc of urine this morning, sweeney placed, no further urine output, essentially anuric spoke extensively with Dr. Akers, nephrology, and Dr. Barrios, oncology, both recommend transfer to [facility] we have limited HD services over the weekend and we have limited ability to place vascular access if needed also, his platelets are 50k and unable to get platelets quickly to place central venous access if needed patient's renal function getting worse, calcium dropping, all complications of multiple myeloma treatment feel that he would be best served to be at tertiary care center spoke with oncology and ICU services at [facility], he will be transferred most recent labs show Cr of 7.2, K 4.4, HCO3 21, Ca 5.2, BUN 62 (2) Hypocalcemia: dropping to 5.0 this morning per records did not get any bisphosphonates give 2gm calcium gluconate repeat labs ordered for noon if he is still here (3) Anemia: likely due to MM follow, no role for transfusion, Hb is 8.7, normocytic (4) Thrombocytopenia: 50k this morning, back on 04/07 it was 117k suspect it is due to MM or medication adverse effect cannot get platelets quickly at [facility], could limit ability to place central access if needed (5) Metabolic acidosis: due to LAMBERT on Bicarb 75mEq in fluid, HCO3 is 17 this morning (6) Hyperphosphatemia: 5.[address] Akers about giving phosphate binders (7) Acute dehydration: extremely poor intake at home and also intermittent diarrhea he tries to keep his stools loose as he has extremely painful anal fissure that cannot be fixed due to cancer received 4 plus liters of fluid here, feels a little better, says his double vision and weakness are a little better Cr sung to 7 despite fluids, suggesting ATN and not prerenal azotemia as etiology (8) Multiple myeloma: On chemotherapy Velcade and Revlimid. last dose of Velcade was 04/08 has been on Revlimid for over a month there are case reports of Revlimid causing renal toxicity but rare d/w Dr. Akers about possible myeloma kidney or cast nephropathy but also considered unlikely Dr. Barrios, local oncologist, recommends transfer to [facility] (9) Diarrhea: Send stool for C. difficile and culture. Start cholestyramine 4 g p.o. twice daily (10) Decreased appetite: Appetite suppression secondary to chemotherapy. Continue dronabinol. (11) Chronic rectal fissure: Follows with [facility]. Has not been on any antibiotics due to no signs of infection. Has primarily been treated with the barrier cream. Total Time Total Time Spent Total Time Spent (In Minutes): 90 minutes Total Time Includes: Examination of the Patient, Discharge Planning, Medication Reconciliation and Communication With Other Providers (Dr. Akers, Dr. Barrios, physicians at [facility] over the phone) Discharge Plan Discharge Items Patient Disposition: Transfer Acute Care Hospital Reason For Visit: ACUTE RENAL FAILURE Discharge Diagnosis: Acute renal failure, anuric Hypocalcemia Hyperuricemia Multiple myeloma with anemia, thrombocytopenia Condition on Discharge: Good Goals: transfer to [facility] Activity: Per Instructions section Non-emergency contact: Primary Care Provider Call non-emergency contact if: you have any medication questions Follow-up/Referrals: Adrian Prince MD [Primary Care Provider] - Diet: Dialysis Renal Addtl Attending Provider Instructions: transfer to [facility] Pending Studies at Discharge: No Stand-Alone Forms: My [facility] Skilled Items Patient informed of condition?: Yes DNR: No Discharge Level of Care: Other Communicable Disease: No Discharge Prognosis: Deteriorating Lines: Peripheral IV Urinary Catheter: Yes Medications and DC Order Prescriptions: Continued docusate sodium [Colace] 100 mg capsule 100 mg PO BID Qty: 60 RF: 1 acyclovir 400 mg Tablet 400 mg PO BID RF: 0 prochlorperazine maleate [Compazine] 10 mg Tablet 10 mg PO Q6H PRN (Reason: Nausea) RF: 0 aspirin [Aspirin Low Dose] 81 mg Tablet,Delayed Release (Dr/Ec) 81 mg PO DAILY RF: 0 dexamethasone 4 mg Tablet See Rx Instructions .ROUTE .COMPLEX RF: 0 Velcade 3.5 mg Recon Soln See Rx Instructions .ROUTE .COMPLEX RF: 0 Revlimid 25 mg Capsule 25 mg PO DIRECTED RF: 0 dronabinol 5 mg Capsule 5 mg PO AC RF: 0 tramadol [Ultram] 50 mg tablet 50 mg PO Q8H PRN (Reason: Pain) RF: 0 Discharge Orders: Discharge Order (Routine); Ordered 04/12/20 Ordered By: Ab Lynch Admission Data Admit Date/Time: 04/11/20 23:48 Attending Provider: Ab Lynch Admit Provider: Saran Winn Primary Care Provider: Adrian Prince Other Providers: Saran Winn ; Dave Akers Coding Level of Care Code D/C Day Management >30 mins Diagnoses Acute renal failure N17.9 Acute renal failure type: unspecified Hypocalcemia E83.51 Anemia D64.9 Thrombocytopenia D69.6 Metabolic acidosis E87.2 Hyperphosphatemia E83.39 Acute dehydration E86.0 Multiple myeloma C90.00 Diarrhea R19.7 Decreased appetite R63.0 Chronic rectal fissure K60.1
[2020-04-12] MEDS ORDERED: CHOLESTYRAMINE LIGHT 4 GM PKT PO SCH (10:00)
[2020-04-12 10:01] LABS: Appearance Urine Turbid (Clear); Bilirubin Urine Negative (Negative); Blood Urine 2+ (Negative); Color Urine Yellow; Epithelial Cell Urine Auto >30 /lpf (0-5); Glucose Urine UA Negative (Negative); Ketones Urine Trace (Negative); Leukocyte Esterase Urine Trace (Negative); Nitrite Urine Negative (Negative); Protein Urine 3+ (Negative); RBC Urine Automated 0-4 /hpf (0-4); Specific Gravity Urine 1.034 (1.000-1.030); Urobilinogen Urine Negative (Negative); WBC Urine Automated >30 /hpf (0-5)
[2020-04-12 10:12] LABS: Amorphous Sediment Urine Present (None Prsent)
[2020-04-12 10:13] LABS: Bacteria Urine Automated 1+ (Negative); Calcium Oxalate Crystals Urine Present (None Prsent)
--- NOTE | 2020-04-12 10:17 | Electrocardiogram Report ---
Test Reason : Blood Pressure : / mmHG Vent. Rate : 092 BPM Atrial Rate : 092 BPM P-R Int : 128 ms QRS Dur : 088 ms QT Int : 412 ms P-R-T Axes : 039 019 036 degrees QTc Int : 509 ms Normal sinus rhythm When compared with ECG of 28-MAR-2020 00:59, QT has lengthened Confirmed by Satnam Cornejo ([id number]) on 04/12/2020 10:17:06 AM Referred By: REFERRED SELF Confirmed By:Siddharth Cornejo
--- NOTE | 2020-04-12 12:31 | Nephrology Consultation ---
Date of Consultation April 12, 2020 Assessment & Plan (1) Acute renal failure: Oligoanuric. No response to IVF. Electrolytes acceptable at this time. Volume status appears euvolemic on exam. CT did not demonstrate evidence of obstruction. UA/microscopy suggestive of ATN. Clinical history suggestive of prerenal physiology due to dehydration complicated by hyperuricemia and underlying myeloma. Unlikely that patient would develop TLS with MM. It would also be unlikely to develop myeloma kidney or cast nephropathy during treatment. Rico denies significant NSAID use. Acute urate nephropathy is possible. Close monitoring of metabolic profile will be necessary. Given the lack of urine out put for ~24 hour and inadequate response to IVF challenge, it is likely that Rico will require CAVING GUIDE in the near future. We discussed HD in detail. Unfortunately, due to limited availability to perform dialysis at [facility] and lack of a vascular surgeon for catheter placement, Rico will be transferred to a facility that can provide these services. In the interim, we will continue gentle hydration with a balanced IVF as tolerated. We will continue to closely monitor serial metabolic profile and document I/Os. I have provided IV calcium gluconate and rasburicase. Medications are currently appropriately dosed for kidney function. (2) Hypocalcemia: I have not been able to confirm whether Rico was treated with Xgeva or bisphosphonates but I suspect he has. IV calcium has been provided and serum levels including ionized calcium levels will be monitored and replaced as needed. It would be reasonable to provide calcitriol if not improved as well as helpful to check 25OH D levels and provide supplementation as needed. (3) Anemia: Acute on chronic associated with malignancy and treatment. Plan of care discussed with Dr. Barrios who [place] [facility] (4) Thrombocytopenia: (5) Metabolic acidosis: Continue to provide a balance IVF as tolerated. (6) Hyperphosphatemia: Dietary restriction and monitoring. No need for PO4 binders at this time. However, reasonable to provide PO calcium such as calcium carbonate with meals. (7) Acute dehydration: Slow to gentle IV hydration due to oligoanuria. Volume status appears nearly euvolemic on exam. (8) Multiple myeloma: Receiving treatment with Velcade, Revlimid, and dexamethasone. (9) Diarrhea: Has been attributed to Revlimid previously. 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 Rico Hyatt is a 49-year-old male with multiple myeloma who presented to the ED at [facility] yesterday with generalized weakness. He was admitted with laboratory abnormalities including notable hypocalcemia and acute renal insufficiency. In the ER 3 x 1000 ml 0.9% saline provided. IV infusion of D5W+ 75 mEq NaHCO3 at 200 ml/hr has been provided since that time. Unfortunately, Rico remains oligoanuric. He reports feeling slightly stronger and his notes that his appetite improved slightly since admission. He does not have any dyspnea. He denies any edema or evidence of fluid retention. López catheter was placed. There are only a few drops of concentrated urine in the bag. CT of the abdomen did not demonstrate any evidence of obstruction. Overall, kidneys are normal in appearance. UA demonstrated a SG of 1.030, 3+ protein, dipstick +blood. Microscopy reporting >30 WBC, epithelial cells, no bacteria, no RBCs, granular casts, and calcium oxalate crystals. Rico was referred for evaluation by his oncologist. He follows locally with Dr. Barrios locally as well as Dr. Verdugo at [facility]. Rico was diagnosed with MM after skeletal lesions were appreciated on CXR in February 2020. He did not have CRAB features on presentation. Kidney function at baseline has been relatively normal. Creatinine was 1.5 mg/dL earlier this month. In March, VRd was started. Unfortunately, therapy has been associated with persistent GI symptoms as well as development of painful hemorrhoids and a rectal fissure. He was admitted to [facility] from March 28- following Velcade treatment with severe lower back pain. Medical history is notable for chronic lower back pain with spinal stenosis requiring intervention in the past. Pain improved with Decadron in addition to pain medications. Rico was treated with Ibuprofen but denies continuing to use any NSAIDS at home. Rico reports progressive fatigue, poor appetite, and generalized weakness for the past couple of weeks. He has had persistent diarrhea as well as nausea. Oral intake has been poor. Rico was feeling very dehydrated when he presented to the hospital. He has experienced improvement in symptoms with IVF provided in the infusion center in the past. He reports frustration that he has not had similar response to current treatment. I discussed the plan of care with Dr. Lynch in detail this morning. Goals of care were reviewed with the patient. Potential role of hemodialysis was discussed with the patient. Allergies Allergy/AdvReac Type Severity Reaction Status Date / Time No Known Allergies Allergy Verified 04/11/20 22:18 Home Medications Home Medications Medication Instructions Recorded Confirmed Type docusate sodium 100 mg capsule 100 mg PO BID #60 cap 03/13/20 04/11/20 Rx Revlimid 25 mg PO DIRECTED 03/28/20 04/11/20 History Velcade See Rx Instructions .ROUTE .COMPLEX 03/28/20 04/11/20 History acyclovir 400 mg PO BID 03/28/20 04/11/20 History aspirin [Aspirin Low Dose] 81 mg PO DAILY 03/28/20 04/11/20 History dexamethasone See Rx Instructions .ROUTE .COMPLEX 03/28/20 04/11/20 History prochlorperazine maleate 10 mg PO Q6H PRN 03/28/20 04/11/20 History [Compazine] dronabinol 5 mg PO AC 04/11/20 04/11/20 History tramadol [Ultram] 50 mg PO Q8H PRN 04/11/20 04/11/20 History Patient History Medical History Degenerative lumbar spinal stenosis Disc degeneration, lumbar Hemorrhoid Multiple myeloma (Acute) Neuroforaminal stenosis of lumbar spine Surgical History History of lumbar surgery 2014 Family History Grandfather (Maternal) Stroke Denies family history of Ovarian cancer Prostate cancer Myocardial infarction Breast cancer Colorectal cancer Lung disease Social History Smoking Status: Never smoker Second Hand Exposure: No; Hx Alcohol Use: Yes Alcohol type: beer Hx Substance Use: No Preferred Language: Vietnamese Communication Ability: Effective Visual Impairment: No Limitations Hearing Ability: Normal Distribution Center Assistant Required: No Beliefs That Will Affect Care: None Current Living Situation: Spouse current occupational status: employed current occupation: [employer] Feels Safe at Home: Yes Childhood Exposure to Second-Hand Smoke: No Review of Systems Constitutional: + fever (low grade temp of 100 at home. No subjective fevers, chills, or rigors), + fatigue, + weakness, + anorexia and + weight loss; no chills and no body aches Eyes: no problem reported Ear, Nose, Mouth, Throat: + dry mouth; no dysphagia and no pain with swallowing Respiratory: no cough, no dyspnea and no problem reported Cardiovascular: + lightheadedness; no chest pain, no palpitations, no syncope and no edema Gastrointestinal: + nausea and + diarrhea/loose stools; no constipation and no blood in stools Genitourinary: + decreased urination; no dysuria Musculoskeletal: + joint pain and + stiffness; no swelling Integumentary: + dry skin; no rash Neurologic: + unsteadiness; no tremor(s), no dizziness, no syncope and no headache(s) Psychiatric: no problem reported Endocrine: + fatigue; no problem reported Hematologic / Lymphatic: no easy bleeding and no easy bruising Physical Exam Constitutional: well developed; no acute distress and not edematous Eyes: + anicteric sclerae; no corneal abnormality ENMT: Mouth: no oral mucosal abnormality and oral mucous membranes not dry Neck: normal visual inspection and trachea midline Respiratory: normal respiratory effort Auscultation: lungs clear to auscultation bilaterally Cardiovascular: Rate/Rhythm: regular rate Heart Sounds: normal S1 and normal S2 Vessels: no JVD Extremities: no edema Gastrointestinal (Abdomen): Percussion/Palpation: abdomen soft; abdomen nontender Musculoskeletal: Extremities: no cyanosis and no clubbing Skin: normal turgor; no lesions Neurologic: Motor/Sensory: no tremor and no asterixis Psychiatric: Orientation: alert and oriented x 3 Genitourinary: López intact Results & Data Vital Signs (Past 12 Hours) Vital Signs Temp Pulse Pulse Resp BP BP Pulse Ox 04/12/20 11:21 36.6 C 85 16 93/56 L 96 04/12/20 09:46 80 04/12/20 07:27 36.8 C 68 18 91/57 L 97 04/12/20 04:10 37.0 C 84 20 94/55 L 96 04/12/20 02:19 84 04/12/20 01:09 36.8 C 87 18 98/60 L 99 Laboratory Results Laboratory Results - last 24 hr 04/11/20 04/11/20 04/11/20 21:36 21:36 21:36 WBC 7.40 RBC 3.05 L Hgb 10.1 L Hct 29.1 L MCV 95.4 MCH 33.1 MCHC 34.7 RDW Std Deviation 51.0 H RDW Coeff of Regina 14.7 H Plt Count 62 L MPV 12.0 H Immature Gran % (Auto) 0.5 Neut % (Auto) 68.1 Lymph % (Auto) 15.9 Chaves % (Auto) 6.8 Eos % (Auto) 8.6 Baso % (Auto) 0.1 Neut # (Auto) 5.03 Lymph # (Auto) 1.18 L Chaves # (Auto) 0.50 Eos # (Auto) 0.64 H Baso # (Auto) 0.01 Immature Gran # (Auto) 0.04 H Dohle Bodies 1+ Platelet Estimate Decreased L Giant Platelets 1+ Echinocytes 1+ PT 12.6 H INR 1.2 H APTT 28.8 PTT Ratio 1.0 Sodium 133 L Potassium 4.4 Chloride 102 Carbon Dioxide 19 L Anion Gap 12.0 H BUN 61 H Creatinine 6.61 H* Est Cr Clr Drug Dosing 14.0 Est GFR ( Amer) 10.4 Est GFR (Non-Af Amer) 9.0 BUN/Creatinine Ratio 9.0 L Glucose 102 H Uric Acid Calcium 6.0 L Phosphorus Magnesium 3.2 H Total Bilirubin 0.6 AST 21 ALT 29 Alkaline Phosphatase 108 Troponin I < 0.015 Total Protein 5.9 L Albumin 2.7 L Globulin 3.1 Albumin/Globulin Ratio 0.9 TSH 0.290 L Free T4 1.53 Urine Color Urine Appearance Urine pH Ur Specific Lincoln Urine Protein Urine Glucose (UA) Urine Ketones Urine Blood Urine Nitrite Urine Bilirubin Urine Urobilinogen Ur Leukocyte Esterase Urine WBC (Auto) Urine RBC (Auto) U Hyaline Cast (Auto) U Epithel Cells (Auto) Urine Bacteria (Auto) Ur Renal Epithelial Cell Calcium Oxalate Crystal Amorphous Sediment Granular Casts COVID-19 Eval Order COVID-19 PCR 04/12/20 04/12/20 04/12/20 01:24 07:27 07:27 WBC 5.39 RBC 2.61 L Hgb 8.7 L Hct 24.6 L MCV 94.3 MCH 33.3 MCHC 35.4 RDW Std Deviation 51.2 H RDW Coeff of Regina 14.8 H Plt Count 50 L MPV 11.7 H Immature Gran % (Auto) 0.6 Neut % (Auto) 63.1 Lymph % (Auto) 16.3 Chaves % (Auto) 10.2 Eos % (Auto) 9.6 Baso % (Auto) 0.2 Neut # (Auto) 3.40 Lymph # (Auto) 0.88 L Chaves # (Auto) 0.55 Eos # (Auto) 0.52 H Baso # (Auto) 0.01 Immature Gran # (Auto) 0.03 H Dohle Bodies Platelet Estimate Giant Platelets Echinocytes PT INR APTT PTT Ratio Sodium 134 L 132 L Potassium 4.6 4.4 Chloride 107 105 Carbon Dioxide 16 L 17 L Anion Gap 11.0 11.0 BUN 60 H 63 H Creatinine 6.56 H* 7.13 H* D Est Cr Clr Drug Dosing 14.1 12.9 Est GFR ( Amer) 10.5 9.5 Est GFR (Non-Af Amer) 9.1 8.2 BUN/Creatinine Ratio 9.1 L 8.9 L Glucose 82 119 H Uric Acid Calcium 5.2 L* 5.0 L* Phosphorus 5.0 H Magnesium Total Bilirubin AST ALT Alkaline Phosphatase Troponin I Total Protein Albumin Globulin Albumin/Globulin Ratio TSH Free T4 Urine Color Urine Appearance Urine pH Ur Specific Lincoln Urine Protein Urine Glucose (UA) Urine Ketones Urine Blood Urine Nitrite Urine Bilirubin Urine Urobilinogen Ur Leukocyte Esterase Urine WBC (Auto) Urine RBC (Auto) U Hyaline Cast (Auto) U Epithel Cells (Auto) Urine Bacteria (Auto) Ur Renal Epithelial Cell Calcium Oxalate Crystal Amorphous Sediment Granular Casts COVID-19 Eval Order COVID-19 PCR 04/12/20 04/12/20 04/12/20 07:27 09:30 09:40 WBC RBC Hgb Hct MCV MCH MCHC RDW Std Deviation RDW Coeff of Regina Plt Count MPV Immature Gran % (Auto) Neut % (Auto) Lymph % (Auto) Chaves % (Auto) Eos % (Auto) Baso % (Auto) Neut # (Auto) Lymph # (Auto) Chaves # (Auto) Eos # (Auto) Baso # (Auto) Immature Gran # (Auto) Dohle Bodies Platelet Estimate Giant Platelets Echinocytes PT INR APTT PTT Ratio Sodium Potassium Chloride Carbon Dioxide Anion Gap BUN Creatinine Est Cr Clr Drug Dosing Est GFR ( Amer) Est GFR (Non-Af Amer) BUN/Creatinine Ratio Glucose Uric Acid 12.1 H Calcium Phosphorus Magnesium Total Bilirubin AST ALT Alkaline Phosphatase Troponin I Total Protein Albumin Globulin Albumin/Globulin Ratio TSH Free T4 Urine Color Yellow Urine Appearance Turbid A Urine pH 5.0 Ur Specific Lincoln 1.034 H Urine Protein 3+ H Urine Glucose (UA) Negative Urine Ketones Trace H Urine Blood 2+ H Urine Nitrite Negative Urine Bilirubin Negative Urine Urobilinogen Negative Ur Leukocyte Esterase Trace H Urine WBC (Auto) >30 H Urine RBC (Auto) 0-4 U Hyaline Cast (Auto) 1-5 U Epithel Cells (Auto) >30 H Urine Bacteria (Auto) 1+ H Ur Renal Epithelial Cell Not Reportable Calcium Oxalate Crystal Present A Amorphous Sediment Present A Granular Casts 1-5 H COVID-19 Eval Order Covid19 Done at [facility] COVID-19 PCR 04/12/20 04/12/20 09:40 11:50 WBC RBC Hgb Hct MCV MCH MCHC RDW Std Deviation RDW Coeff of Regina Plt Count MPV Immature Gran % (Auto) Neut % (Auto) Lymph % (Auto) Chaves % (Auto) Eos % (Auto) Baso % (Auto) Neut # (Auto) Lymph # (Auto) Chaves # (Auto) Eos # (Auto) Baso # (Auto) Immature Gran # (Auto) Dohle Bodies Platelet Estimate Giant Platelets Echinocytes PT INR APTT PTT Ratio Sodium 133 L Potassium 4.4 Chloride 104 Carbon Dioxide 19 L Anion Gap 10.0 BUN 62 H Creatinine 7.23 H* Est Cr Clr Drug Dosing 12.8 Est GFR ( Amer) 9.3 Est GFR (Non-Af Amer) 8.0 BUN/Creatinine Ratio 8.4 L Glucose 125 H Uric Acid Calcium 5.3 L* Phosphorus 5.1 H Magnesium 2.7 H Total Bilirubin AST ALT Alkaline Phosphatase Troponin I Total Protein Albumin Globulin Albumin/Globulin Ratio TSH Free T4 Urine Color Urine Appearance Urine pH Ur Specific Lincoln Urine Protein Urine Glucose (UA) Urine Ketones Urine Blood Urine Nitrite Urine Bilirubin Urine Urobilinogen Ur Leukocyte Esterase Urine WBC (Auto) Urine RBC (Auto) U Hyaline Cast (Auto) U Epithel Cells (Auto) Urine Bacteria (Auto) Ur Renal Epithelial Cell Calcium Oxalate Crystal Amorphous Sediment Granular Casts COVID-19 Eval Order COVID-19 PCR NEGATIVE PG Care Time/CCT Total # of Minutes Spent Total Time Spent with Patient: Total time spent is greater than 50% in coordination of care (as documented) at patient's floor/unit and/or counseling patient: Coding Level of Care Code 85688 Inpt Consult Level 5 Diagnoses Acute renal failure N17.9 Acute renal failure type: unspecified Hypocalcemia E83.51 Anemia D64.9 Thrombocytopenia D69.6 Metabolic acidosis E87.2 Hyperphosphatemia E83.39 Acute dehydration E86.0 Multiple myeloma C90.00 Diarrhea R19.7 Decreased appetite R63.0 Chronic rectal fissure K60.1 (1) Acute renal failure Acute renal failure type: unspecified Qualified Code(s): N17.9 - Acute kidney failure, unspecified
[2020-04-12 12:37] LABS: BUN Creatinine Ratio 8.4 (10-20); Calcium 5.3 mg/dl (8.5-10.1); Creatinine Clr Calc Pharmacy 12.8 ml/min; Est GFR (African American) 9.3; Magnesium 2.7 mg/dl (1.8-2.4); Phosphorus 5.1 mg/dl (2.5-4.9); Potassium 4.4 mmol/L (3.5-5.1)
[2020-04-12] MEDS ORDERED: RASBURICASE 6 MG in SODIUM CHLORIDE 0.9% 50 ML IV ONE (13:00)
[2020-04-12] MEDS ORDERED: NORMOSOL-R 1,000 ML IV SCH (13:15)
[2020-04-12 13:55] LABS: BUN Creatinine Ratio 8.5 (10-20); Calcium 5.2 mg/dl (8.5-10.1); Creatinine Clr Calc Pharmacy 12.7 ml/min; Est GFR (African American) 9.3; Potassium 4.4 mmol/L (3.5-5.1)
[2020-04-12 14:56] VITALS: PULSE 82
[2020-04-12 15:04] VITALS: TEMP 98.2; O2SAT 97
[2020-04-12 17:11] LABS: BUN Creatinine Ratio 8.3 (10-20); Calcium 6.1 mg/dl (8.5-10.1); Creatinine Clr Calc Pharmacy 11.9 ml/min; Est GFR (African American) 8.6; Est GFR (Non-African American) 7.4; Potassium 4.5 mmol/L (3.5-5.1)
[2020-04-12 17:22] VITALS: BP 94/55
== END 2020-04-12 19:45 | disposition short-term general hospital (02) | DRG 683 ==
LOC: ED 20:41 → SUATTDRO 23:48 → 2W 23:48

== ENCOUNTER 2020-05-02 20:12 | Observation (INO) ==
[2020-05-02] MEDS ORDERED: SODIUM CHLORIDE 0.9% 250 ML IV PRN ×2 (20:42→21:25)
[2020-05-02] MEDS ORDERED: SODIUM CHLORIDE 0.9% 1000ML 1,000 ML IV SCH (20:45)
--- NOTE | 2020-05-02 20:56 | Emergency Department Note ---
Impression & Plan Near syncope, Anemia, Weakness ED Provider Note NAME: BRENDA MITCHELL AGE: 50 SEX: M : 1970 ARRIVES VIA: Walk-In INFORMANT: [Patient][family] ED PROVIDER(S): [Adrian Velásquez MD] CHIEF COMPLAINT: Weakness HISTORY OF PRESENT ILLNESS: The patient is a 50-year-old male with multiple myeloma. He is currently in need of dialysis for renal failure. He was dialyzed today. At dialysis, when he was walking back for treatment, his legs started to give out and he felt ex tremely weak. He was placed in a wheelchair. He began to sweat. He was pale. No chest pain or shortness of breath. No true syncope. He felt better after a short bit and underwent dialysis. He did speak with his cancer physician afterwards and he has been referred to this ED as he has a low hemoglobin. He is in need of a blood transfusion. Patient has felt weak and fatigued. His family has noticed that his lips are quite white/pale. He has not had abdominal pain or vomiting. No fever. He has had some intermittent rectal bleeding that has been bright red and mixed with the stool for the last week. He states though that today when he had a bowel movement, he did not see any blood. The patient did receive 2 units of packed red blood cells about 2 weeks ago when he was at [facility]. REVIEW OF SYSTEMS: See HPI for pertinent positives and negatives. A total of ten systems were reviewed and were otherwise negative. PMHx/PSHx: See Below SOCIAL HISTORY: See Below. PHYSICAL EXAM: GENERAL: Patient is in no acute distress. HEENT: No acute trauma, normocephalic atraumatic, mucous membranes moist, no nasal congestion, no scleral icterus. NECK: No stridor, no adenopathy, no meningismus, trachea is midline. LUNGS: Clear to auscultation bilaterally, no wheeze, no rhonchi, breath sounds equal. HEART: Without murmurs gallops or rubs, regular rate and rhythm. ABDOMEN: Soft, nontender, bowel sounds positive, no hernias, no peritonitis. EXTREMITIES: No cyanosis or edema, full range of motion of all the joints without pain or difficulty, no signs for acute trauma. NEUROLOGIC: Oriented x 3, no acute motor or sensory deficits, no focal weakness. SKIN: No rash, no jaundice, no diaphoresis. Quite pale. DIFFERENTIAL DIAGNOSIS: Infection, dehydration, metabolic abnormality, hypo/hyperglycemia, GI bleeding, electrolyte disturbance, anemia, hypoxia, cardiac sources, intracerebral event, toxicologic, neurologic, as well as other pathologies. EMERGENCY DEPARTMENT COURSE/PROCEDURES: ECG: Indication was weakness. The ECG shows a normal sinus rhythm with a rate of 83. The QTc is 512. There is no ST elevation, no PVCs. Continuous Cardiac Monitoring: An order was placed for continuous cardiac monitoring. The monitor shows a rate of 86 with normal sinus rhythm. Critical Care Note: I have personally spent greater than 52 minutes of critical care time in the direct management of this patient. This includes bedside care, interpretation of diagnostic studies, and testing, discussion with consultants, patient, and family members, and other required patient management activities. This 52 minutes is in excess of all separately billable procedures. MEDICAL DECISION MAKING: There is a lower white count at 2, this is baseline lately though looking back at previous testing. Patient is quite anemic with a hemoglobin of 6.2. Platelet count is low but he has been low as of late. No coagulopathy. Pota ssium somewhat low at 3.1. Creatinine was elevated at 2.87-this elevation to the creatinine is consistent with his dialysis history. Alk phos was somewhat elevated, the remaining liver enzymes were unremarkable. ECG shows a sinus rhythm, no acute ischemia. Cardiac enzyme testing x1 is not consistent with acute cardiac injury. Chest film shows some chronic change to the left upper lung, there was no CHF or pneumonia. On exam, the patient appeared pale. His blood pressure was low but looking at his history, he runs a low blood pressure all the time. The patient received IV saline, 1 L. He was ordered for blood for transfusion. 1 unit was ordered to be given here in the ED. The consent for the transfusion was completed and signed. I spoke to the patient about his findings. He will likely require more than 1 unit of packed red blood cells, he may require dialysis or possibly diuresis between his units of blood. Observation and monitoring is warranted. I did speak to the patient and his family, I spoke with the casework manager. The on-call hospitalist has been consulted. Past Med/Surg History Medical History Degenerative lumbar spinal stenosis Disc degeneration, lumbar Hemorrhoid Multiple myeloma Neuroforaminal stenosis of lumbar spine Surgical History History of lumbar surgery 2014 Family History Grandfather (Maternal) Stroke Denies family history of Ovarian cancer Prostate cancer Myocardial infarction Breast cancer Colorectal cancer Lung disease Social History Smoking Status: Never smoker Second Hand Exposure: No; Hx Alcohol Use: Yes Alcohol type: beer Hx Substance Use: No Preferred Language: Czech Communication Ability: Effective Visual Impairment: No Limitations Hearing Ability: Normal Television Mechanic Required: No Beliefs That Will Affect Care: None Current Living Situation: Spouse current occupational status: employed current occupation: [employer] Feels Safe at Home: Yes Childhood Exposure to Second-Hand Smoke: No Allergies Allergies Allergy/AdvReac Type Severity Reaction Status Date / Time No Known Allergies Allergy Verified 05/02/20 21:54 Home Meds Home Medications Medication Instructions Recorded Confirmed acyclovir 400 mg PO DAILY 03/28/20 05/02/20 aspirin [Aspirin Low Dose] 81 mg PO QAM 03/28/20 05/02/20 loperamide 4 mg PO QID PRN 05/02/20 05/02/20 ondansetron 8 mg PO Q12H PRN 05/02/20 05/02/20 sevelamer carbonate 0.8 g PO TIDM 05/02/20 05/02/20 Results & Data (ED) Vital Signs Vital Signs - 24 hr 05/02/20 20:15 05/02/20 20:45 05/02/20 21:00 Temperature 36.7 C Temperature Source Oral Pulse Rate 86 Pulse Rate [Left Apical] 85 83 Pulse Rhythm [Left Apical] Regular Regular Pulse Strength [Left Apical] Normal Normal Respiratory Rate 20 20 15 Respiratory Effort / Characteristics Non-Labored Spontaneous Non-Labored Spontaneous Respiratory Depth Normal Normal Respiratory Pattern Regular Regular Blood Pressure 97/65 L Blood Pressure [Left Arm] 88/54 L 97/61 L Blood Pressure Mean 75 Blood Pressure Mean [Left Arm] 65 73 Blood Pressure Position Sitting Blood Pressure Position [Left Arm] Lying Lying Pulse Oximetry 98 97 96 Oxygen Delivery Method Room Air Room Air Sepsis Recent Fever Within 48 Hours No Sepsis New/Unexplained Change in Mental Status No Sepsis Action Taken by Nursing No Action Required Home Medications Current Medication List: was personally reviewed by me Laboratory Data Attestation: I reviewed the patient's lab results. Result diagrams: 05/02/20 20:45 05/02/20 20:45 Lab Results 05/02/20 05/02/20 05/02/20 Range/Units 20:45 20:45 20:45 WBC 2.01 L (4.8-10.8) K/uL RBC 1.94 L (4.7-6.1) M/uL Hgb 6.2 L* (14.0-18.0) g/dL Hct 18.7 L* (42-52) % MCV 96.4 (80-100) fL MCH 32.0 (25-34) pg MCHC 33.2 (32-36) g/dL RDW Std Deviation 49.5 H (36.4-46.3) fL RDW Coeff of Regina 14.8 H (11.5-14.5) % Plt Count 117 L (130-400) K/uL MPV 9.1 (7.4-10.4) fL Immature Gran % (Auto) 0.0 % Neut % (Auto) 54.2 % Lymph % (Auto) 31.3 % Price % (Auto) 4.5 % Eos % (Auto) 7.5 % Baso % (Auto) 2.5 % Neut # (Auto) 1.09 L (1.4-6.5) K/uL Lymph # (Auto) 0.63 L (1.2-3.4) K/uL Price # (Auto) 0.09 L (0.11-0.59) K/uL Eos # (Auto) 0.15 (0-0.5) K/uL Baso # (Auto) 0.05 (0-0.2) K/uL Immature Gran # (Auto) 0.00 (0.00-0.02) K/uL RBC Morphology Unremarkable PT 11.6 (9.0-12.0) Seconds INR 1.1 (0.9-1.1) APTT 21.4 (21.0-31.0) Seconds PTT Ratio 0.8 Sodium 138 (136-145) mmol/L Potassium 3.1 L (3.5-5.1) mmol/L Chloride 100 (98-107) mmol/L Carbon Dioxide 30 (21-32) mmol/L Anion Gap 8.0 (3-11) BUN 5 L (7-18) mg/dl Creatinine 2.87 H (0.6-1.4) mg/dl Est Cr Clr Drug Dosing Not Reportable Est GFR ( Amer) 28.3 Est GFR (Non-Af Amer) 24.4 BUN/Creatinine Ratio 1.8 L (10-20) Glucose 80 (70-99) mg/dl Calcium 8.0 L (8.5-10.1) mg/dl Magnesium 1.9 (1.8-2.4) mg/dl Total Bilirubin 0.5 (0.2-1) mg/dl AST 31 (15-37) U/L ALT 35 (12-78) U/L Alkaline Phosphatase 372 H (45-117) U/L Troponin I < 0.015 (0-0.045) ng/ml Total Protein 5.8 L (6.4-8.2) gm/dl Albumin 2.3 L (3.4-5.0) gm/dl Globulin 3.5 (2.5-4.0) gm/dl Albumin/Globulin Ratio 0.7 L (0.9-2) Crossmatch 05/02/20 Range/Units 21:14 WBC (4.8-10.8) K/uL RBC (4.7-6.1) M/uL Hgb (14.0-18.0) g/dL Hct (42-52) % MCV (80-100) fL MCH (25-34) pg MCHC (32-36) g/dL RDW Std Deviation (36.4-46.3) fL RDW Coeff of Regina (11.5-14.5) % Plt Count (130-400) K/uL MPV (7.4-10.4) fL Immature Gran % (Auto) % Neut % (Auto) % Lymph % (Auto) % Price % (Auto) % Eos % (Auto) % Baso % (Auto) % Neut # (Auto) (1.4-6.5) K/uL Lymph # (Auto) (1.2-3.4) K/uL Price # (Auto) (0.11-0.59) K/uL Eos # (Auto) (0-0.5) K/uL Baso # (Auto) (0-0.2) K/uL Immature Gran # (Auto) (0.00-0.02) K/uL RBC Morphology PT (9.0-12.0) Seconds INR (0.9-1.1) APTT (21.0-31.0) Seconds PTT Ratio Sodium (136-145) mmol/L Potassium (3.5-5.1) mmol/L Chloride (98-107) mmol/L Carbon Dioxide (21-32) mmol/L Anion Gap (3-11) BUN (7-18) mg/dl Creatinine (0.6-1.4) mg/dl Est Cr Clr Drug Dosing Est GFR ( Amer) Est GFR (Non-Af Amer) BUN/Creatinine Ratio (10-20) Glucose (70-99) mg/dl Calcium (8.5-10.1) mg/dl Magnesium (1.8-2.4) mg/dl Total Bilirubin (0.2-1) mg/dl AST (15-37) U/L ALT (12-78) U/L Alkaline Phosphatase (45-117) U/L Troponin I (0-0.045) ng/ml Total Protein (6.4-8.2) gm/dl Albumin (3.4-5.0) gm/dl Globulin (2.5-4.0) gm/dl Albumin/Globulin Ratio (0.9-2) Crossmatch See Detail Administered Medications Discontinued Medications Sodium Chloride (Nss 1000ml) 1,000 mls @ 999 mls/hr IV .Q1H1M NAVEEN Stop: 05/02/20 21:45 Last Admin: 05/02/20 21:04 Dose: 999 mls/hr Documented by: [id number] Imaging Data Radiologist's Impression: XR chest 1V portable CLINICAL HISTORY: weakness COMPARISON STUDY: 04/11/2020 FINDINGS: The cardiac and mediastinal contours remain stable. There is a right sided double lumen central venous catheter. There is a stable 42 mm pleural- based left upper lung zone lesion. There is no acute parenchymal consolidation. There is no failure. There are no pleural effusions.[ IMPRESSION: 1. Stable 42 mm pleural-based left upper lung zone lesion with possible underlying rib destruction. 2. No evidence of failure. No evidence of focal pulmonary consolidation Blood Pressure Blood Pressure Findings: Low blood pressure Blood Pressure Disposition: further management by hospitalist Discharge Plan Visit Data Chief Complaint: Referred by Doctor Stated Complaint: REFERRED BY DR. JEFFERSON FOR BLOOD TRANSFUSION ED Provider: Adrian Velásquez Discharge Problem: Near syncope, Anemia, Weakness Patient Disposition: Admitted As Inpatient Condition: Fair Forms Stand Alone Forms: [facility] [employer] Prescriptions Prescriptions: No Action acyclovir 400 mg Tablet 400 mg PO DAILY RF: 0 aspirin [Aspirin Low Dose] 81 mg Tablet,Delayed Release (Dr/Ec) 81 mg PO QAM RF: 0 loperamide 2 mg Tablet 4 mg PO QID PRN (Reason: Diarrhea) RF: 0 ondansetron 8 mg Tablet,Disintegrating 8 mg PO Q12H PRN (Reason: Nausea) RF: 0 sevelamer carbonate 0.8 gram Powder In Packet 0.8 g PO TIDM RF: 0 Referrals Referrals: Adrian Prince MD [Primary Care Provider] - Discharge Problem: Anemia Qualifiers: Anemia type: unspecified type Qualified Code(s): D64.9 - Anemia, unspecified
--- NOTE | 2020-05-02 21:04 | XRay Report ---
XR chest 1V portable CLINICAL HISTORY: weakness COMPARISON STUDY: 04/11/2020 FINDINGS: The cardiac and mediastinal contours remain stable. There is a right sided double lumen lillian tral venous catheter. There is a stable 42 mm pleural-based left upper lung zone lesion. There is no acute parenchymal consolidation. There is no failure. There are no pleural effusions.[ IMPRESSION: 1. Stable 42 mm pleural-based left upper lung zone lesion with possible underlying rib destruction. 2. No evidence of failure. No evidence of focal pulmonary consolidation ACT 112: Negative or not required by law. Electronically signed by: Tripp March M.D. 05/02/2020 9:02 PM
[2020-05-02 21:16] LABS: Alanine Aminotransferase 35 U/L (12-78); Albumin Level 2.3 gm/dl (3.4-5.0); Aspartate Aminotransferase 31 U/L (15-37); BUN Creatinine Ratio 1.8 (10-20); Blood Urea Nitrogen 5 mg/dl (7-18); Carbon Dioxide 30 mmol/L (21-32); Chloride 100 mmol/L (98-107); Est GFR (African American) 28.3; Est GFR (Non-African American) 24.4; Glucose 80 mg/dl (70-99); Magnesium 1.9 mg/dl (1.8-2.4); Potassium 3.1 mmol/L (3.5-5.1); Sodium 138 mmol/L (136-145)
[2020-05-02 21:20] LABS: Hematocrit (blood only) 18.7 % (42-52); Hemoglobin 6.2 g/dL (14.0-18.0); Mean Corpuscular Hgb Conc 33.2 g/dL (32-36); Mean Corpuscular Volume 96.4 fL (80-100); Mean Platelet Volume 9.1 fL (7.4-10.4); Platelet Count 117 K/uL (130-400); RDW Coefficient of Variation 14.8 % (11.5-14.5); RDW Standard Deviation 49.5 fL (36.4-46.3); Red Blood Count 1.94 M/uL (4.7-6.1); White Blood Count 2.01 K/uL (4.8-10.8)
[2020-05-02 21:21] LABS: Albumin Globulin Ratio 0.7 (0.9-2); Alkaline Phosphatase 372 U/L (45-117); Bilirubin,Total 0.5 mg/dl (0.2-1); Globulin 3.5 gm/dl (2.5-4.0); Total Protein 5.8 gm/dl (6.4-8.2); Troponin I < 0.015 ng/ml (0-0.045)
[2020-05-02 21:22] LABS: INR 1.1 (0.9-1.1); Partial Thromboplastin Ratio 0.8; Partial Thromboplastin Time 21.4 Seconds (21.0-31.0); Prothrombin Time 11.6 Seconds (9.0-12.0)
[2020-05-02 21:49] LABS: Basophils # (auto) 0.05 K/uL (0-0.2); Basophils % (auto) 2.5 %; Eosinophils # (auto) 0.15 K/uL (0-0.5); Eosinophils % (auto) 7.5 %; Lymphocytes # (auto) 0.63 K/uL (1.2-3.4); Lymphocytes % (auto) 31.3 %; Monocytes # (auto) 0.09 K/uL (0.11-0.59); Monocytes % (auto) 4.5 %; Neutrophils # (auto) 1.09 K/uL (1.4-6.5); Neutrophils % (auto) 54.2 %; RBC Morphology Unremarkable
--- NOTE | 2020-05-02 22:30 | History & Physical Report ---
Date of Service May 02, 2020 Assessment & Plan (1) Near syncope: Mr. Hyatt is a 50 yo M with a PMHx of multiple myeloma on chemotherapy, complicated by ESRD on hemodialysis who presented to the ED directly from his dialysis facility after a near syncopal event. Patient was found to be si gnificantly anemic and was admitted for a blood transfusion. - etiology of near syncopal episode likely symptomatic anemia given Hgb of 6.2 - treatment as below (2) Pancytopenia: - likely secondary to bone marrow suppression (secondary both to his multiple myeloma and his ongoing chemotherapy) - ANC 1089 cells/uL, PAPO risk category 2 - patient afebrile on admission, normal HR, RR - neutropenic precautions - transfused 2 units of irradiated pRBCs on admission - repeat CBC at 8am (3) Anemia: - hgb 6.2 on admission, MCV 96 - potentially both a production and a loss problem - multiple myeloma and ongoing chemo + concurrent ESRD also likely causing low erythropoietin contribute to production issue - patient also has ongoing hematochezia potentially contributing to acute blood loss - follows with [facility] - known hemorrhoids and anal fissure (which is currently not painful) - repeat CBC in AM - transfuse for Hgb < 7 - use irradiated cells given ongoing chemo (4) Multiple myeloma: - diagnosed via bone marrow biopsy at [facility] in 02/2020 - Dr. Barrios is local point of contact - most recent chemo infusion 04/23 (5) ESRD (end stage renal disease) on dialysis: - likely secondary to pathology of multiple myeloma - MWF hemodialysis - Cr 2.87, K 3.1 - it is unclear why patient wasn't transfused while at dialysis facility today - nephrology not consulted, as patient will likely be discharged before he is due for next dialysis (6) Hemorrhoid: - chronic - patient using hydrocortisone and diltiazem prn (7) Anal fissure: - follows with [facility] - patient would likely benefit from a colonoscopy, however per patient, providers have been hesitant to do any procedures on him given his immunosuppressive chemo regimen and the risk of operative infection - consider outpatient Cologuard testing Dispo: Med/Surg Diet: Dialysis DVT ppx: bilateral SCDs Code: Full History of Present Illness Primary Care Provider: Adrian Prince MD Mr. Hyatt is a 50 yo gentleman with a PMHx of multiple myeloma (diagnosed via bone marrow biopsy at [facility] in 02/2020) currently undergoing chemotherapy (most recent infusion 04/22/20) under the direction of [facility] [place] who recently developed end-stage renal disease, currently on MWF he modialysis. On his way into dialysis today, Mr. Hyatt felt weak, fatigued, and became diffusely diaphoretic before his legs gave way. He denies loss of consciousness and has complete recall of the event. He managed to get into his dialysis facility and complete his session - based on his hemoglobin level, Dr. Barrios, who is his local contact for chemotherapy infusions, was notified and ultimately directed Mr. Hyatt to the ED for a blood transfusion. Of note, he had a recent 14 day hospital stay at [facility] at which time he was diagnosed with ESRD. During this admission he had been transfused 2 units of pRBCs. Mr. Hyatt does report seeing blood mixed in his stool over the past 5 days. He saw [facility] in 02/2020, at which time he was diagnosed with an anal fissure. He also has known hemorrhoids, which he treats with hydrocortisone and diltiazem. Although a routine screening colonoscopy would be indicated now that he has reached age 50, providers have advised him to wait until after he completes his chemotherapy regimen before getting this procedure (due to the risks of potential infection while immunosuppressed). Despite the observed hematochezia, Mr. Hyatt insists that his fissure is not painful at present. ED Course: Hgb 6.2, MCV 96. WBC 2.01. Platelets 117k. Coags WNL. K 3.1. Cr 2.87. Ca corrects to 9.4. trop x 1 undetectable. CXR showing no active disease. Patient was given 1 liter of IV saline and transfused 2 units of irradiated pRBCs. Allergies Allergy/AdvReac Type Severity Reaction Status Date / Time No Known Allergies Allergy Verified 05/02/20 21:54 Home Medications Home Medications Medication Instructions Recorded Confirmed Type acyclovir 400 mg PO DAILY 03/28/20 05/02/20 History aspirin [Aspirin Low Dose] 81 mg PO QAM 03/28/20 05/02/20 History loperamide 4 mg PO QID PRN 05/02/20 05/02/20 History ondansetron 8 mg PO Q12H PRN 05/02/20 05/02/20 History sevelamer carbonate 0.8 g PO TIDM 05/02/20 05/02/20 History Past Med/Surg History Medical History Degenerative lumbar spinal stenosis Disc degeneration, lumbar Hemorrhoid Multiple myeloma Neuroforaminal stenosis of lumbar spine Surgical History History of lumbar surgery 2014 Family History Grandfather (Maternal) Stroke Denies family history of Ovarian cancer Prostate cancer Myocardial infarction Breast cancer Colorectal cancer Lung disease Social History Smoking Status: Never smoker Second Hand Exposure: No; Hx Alcohol Use: Yes Alcohol type: beer Hx Substance Use: No Preferred Language: Macedonian Communication Ability: Effective Visual Impairment: No Limitations Hearing Ability: Normal Plate And Weld Inspector Required: No Beliefs That Will Affect Care: None Current Living Situation: Spouse current occupational status: employed current occupation: [employer] Other Information That Helps Us Care for You: No Feels Safe at Home: Yes Safety Concerns: Feels Safe At This Time Childhood Exposure to Second-Hand Smoke: No Review of Systems Constitutional: + fatigue and + weakness Physical Exam Constitutional: WD/WN, vitals as above cooperative Eyes: + conjunctival abnormality (pallor) ENMT: external ear and nose normal, oropharynx normal Neck: normal visual inspection and trachea midline Respiratory: normal respiratory effort, lungs clear to auscultation Cardiovascular: RRR, no murmur, no edema Heart Sounds: normal S1 and normal S2 Extremities: no edema Gastrointestinal (Abdomen): normal bowel sounds, soft, nontender, no hepatosplenomegaly Skin: + pallor Psychiatric: A+Ox3, euthymic affect Results & Data Results & Data ([facility]) Vital Signs (Past 12 Hours) Vital Signs Temp Pulse Pulse Resp BP BP Pulse Ox 05/02/20 21:00 83 15 97/61 L 96 05/02/20 20:45 85 20 88/54 L 97 05/02/20 20:15 36.7 C 86 20 97/65 L 98 Supervising Physician Co-Signing Physician Notes Patient seen and examined, chart reviewed, case discussed with and I agree with her assessment and plan as documented above. Briefly, patient is an unfortunate 50-year-old male with history of multiple myeloma presenting with symptomatic anemia, pancytopenia. He had a near syncopal event before admission. Patient with ESRD on hemodialysis, last treatment received today. On exam patient afebrile, hemodynamically stable, no acute distress Skinpallor, no rashes/lesions HEENTnormocephalic/atraumatic, pupils equal and reactive to light, moist mucous membranes, neck supple Heart+ S1, S2, regular, no murmur/rub/gallops LungsCTA Abdomen+ bowel sounds, soft, nontender/nondistended Extremitieswarm, palpable pulses Labs and images reviewed. Significant for pancytopenia with WBC = 2.01, Hgb = 6.2, HCT = 18.7 and platelets = 117. Patient neutropenic with neutrophil 1.09 Assessment/[id number] male with history of multiple myeloma, ESRD on hemodialysis presenting with symptomatic anemia and near syncopal event. Hgb = 6.2. Most likely multifactorial setting of renal disease, malignancy, blood loss Transfuse 2 units PRBCs Monitor CBC Contact outpatient oncology Remainder of plan as above Resident Activity Tracking Resident Involvement: Resident Care Provided Care Provided: Adult Hospital Medicine (1) Hemorrhoid Hemorrhoid type: unspecified Qualified Code(s): K64.9 - Unspecified hemorrhoids
[2020-05-03] MEDS ORDERED: POLYETHYLENE (MIRALAX) 17 GM PACK PO PRN (00:26)
[2020-05-03] MEDS ORDERED: ACETAMINOPHEN 325 MG TAB PO PRN (00:26)
[2020-05-03] MEDS ORDERED: ZOLPIDEM TARTRATE 5 MG TAB PO PRN (00:26)
[2020-05-03] MEDS ORDERED: ALUMINUM/MAGNESIUM SUSP 30 ML UDC PO PRN (00:26)
[2020-05-03] MEDS ORDERED: ONDANSETRON 4 MG OD TAB PO PRN (00:26)
[2020-05-03] MEDS ORDERED: ONDANSETRON INJ 2 MG/ML 2 ML VIAL IV PRN (00:26)
[2020-05-03] MEDS ORDERED: MAGNESIUM HYDROXIDE SUSP 30 ML UDC PO PRN (00:26)
[2020-05-03] MEDS ORDERED: LOPERAMIDE HCL 2 MG CAP PO PRN (00:36)
[2020-05-03] MEDS ORDERED: SODIUM CHLORIDE 0.9% 250 ML IV PRN ×3 (02:40→15:39)
--- NOTE | 2020-05-03 03:01 | Communication Note ---
Date of Service: May 03, 2020 I sent an e-message via [employer] to Mr. Hyatt's [facility] provider, Dr. Alexis Hebert, to notify him of this admission and to make sure he was aware that Mr. Hyatt was anemic with a report of bright red blood per rectum.
--- NOTE | 2020-05-03 03:50 | Billing Data ---
Date of Service May 02, 2020 Coding Level of Care Code 64602 Initial Inpt Care Lvl 3
[2020-05-03 08:03] LABS: Hematocrit (blood only) 21.7 % (42-52); Hemoglobin 7.4 g/dL (14.0-18.0); Mean Corpuscular Hgb Conc 34.1 g/dL (32-36); Mean Corpuscular Volume 93.9 fL (80-100); RDW Coefficient of Variation 15.2 % (11.5-14.5); RDW Standard Deviation 49.6 fL (36.4-46.3); Red Blood Count 2.31 M/uL (4.7-6.1); White Blood Count 2.29 K/uL (4.8-10.8)
[2020-05-03 08:36] LABS: Basophils # (auto) 0.04 K/uL (0-0.2); Basophils % (auto) 1.7 %; Eosinophils # (auto) 0.23 K/uL (0-0.5); Immature Granulocytes # (auto) 0.01 K/uL (0.00-0.02); Immature Granulocytes % (auto) 0.4 %; Lymphocytes # (auto) 0.81 K/uL (1.2-3.4); Lymphocytes % (auto) 35.4 %; Mean Platelet Volume 9.2 fL (7.4-10.4); Monocytes # (auto) 0.13 K/uL (0.11-0.59); Monocytes % (auto) 5.7 %; Neutrophils # (auto) 1.07 K/uL (1.4-6.5); Neutrophils % (auto) 46.8 %; Platelet Count 99 K/uL (130-400); RBC Morphology Unremarkable
[2020-05-03 08:38] LABS: Albumin Level 1.9 gm/dl (3.4-5.0); BUN Creatinine Ratio 1.8 (10-20); Bilirubin Direct 0.2 mg/dl (0-0.2); Calcium 7.1 mg/dl (8.5-10.1); Est GFR (African American) 17.2; Est GFR (Non-African American) 14.8; Potassium 3.6 mmol/L (3.5-5.1)
[2020-05-03 08:40] LABS: Bilirubin,Total 0.5 mg/dl (0.2-1)
[2020-05-03 08:49] LABS: Appearance Urine Clear (Clear); Bacteria Urine Automated Negative (Negative); Bilirubin Urine Negative (Negative); Blood Urine Trace (Negative); Color Urine Yellow; Epithelial Cell Urine Auto 20-30 /lpf (0-5); Glucose Urine UA Negative (Negative); Ketones Urine Negative (Negative); Leukocyte Esterase Urine Trace (Negative); Nitrite Urine Negative (Negative); RBC Urine Automated 0-4 /hpf (0-4); Specific Gravity Urine 1.013 (1.000-1.030); Urobilinogen Urine Negative (Negative); pH Urine >= 9.0 (4.5-7.5)
[2020-05-03 08:57] LABS: Protein Urine 2+ (Negative); Sulfosalicylic Acid Urine Positive (Negative)
[2020-05-03] MEDS ORDERED: ASPIRIN 81 MG ECTAB PO SCH (09:00)
[2020-05-03] MEDS: SEVELAMER HCL 800 MG TABLET PO SCH ×3 (09:21→16:59)
[2020-05-03] MEDS: ACYCLOVIR 400 MG TAB PO SCH (09:22)
--- NOTE | 2020-05-03 10:23 | Consultation Report ---
DATE OF CONSULTATION: 05/03/2020 HISTORY OF PRESENT ILLNESS: The patient is a 50-year-old man with recently diagnosed lambda chain myeloma. Throughout 2019, patient had numerous orthopedic complaints. These included lumbosacral degenerative joint disease. He was seen in March of this year with a palpable tender mass, left upper anterior chest. CAT scan disclosed a pathological fracture, left second rib as well as numerous osseous lesions throughout his skeleton. Bone marrow aspirate and biopsy which was done at [facility] which revealed 50-60% plasma cells. The patient was given induction therapy with Revlimid, Velcade and dexamethasone. He had very poor tolerance to this regimen; however. The patient developed profuse diarrhea and became dehydrated. Consequently, patient evolved acute renal failure. Likely due to precipitation of light chains in context of dehydration in his renal tubules. The patient is requiring dialysis, which he gets 3 times a week. The patient, when he presented to [facility] with dehydration and renal failure, since it was a weekend, he was transferred to [facility]. While there, he was seen by a medical case worker. The patient had a myeloma treatment, thus was changed to Cytoxan, bortezomib and dexamethasone. Treatment is to begin on 05/06/2020. The patient is in the hospital at present because of anemia. He was transfused 2 units of packed cells without incident. The patient's white count is also well as are his platelets ( see blood count). Patient is afebrile and has no signs or symptoms of infection nor does he have any manifestations of bleeding. PHYSICAL EXAMINATION: HEAD, EARS, NOSE THROAT: Normal. CHEST: Clear. HEART: Regular rhythm. ABDOMEN: Flat, benign. EXTREMITIES: No edema. IMPRESSION: 1. Lambda chain myeloma. 2. Myeloma kidney. 3. Pancytopenia due to effects of previous renovascular disease as well as plasma cell infiltration into the bone marrow. The patient's overall prognosis given his renal failure and pancytopenia is poor. PLAN: The patient can likely be discharged today. He will start chemotherapy as described above on 05/06/2020 . The patient will continue to require vigorous support including transfusion and growth factor therapy as well as IV fluids periodically. He will be followed at the [facility] outpatient [facility] by Dr. Barrios.
[2020-05-03 12:38] LABS: Hematocrit (blood only) 21.5 % (42-52); Hemoglobin 7.6 g/dL (14.0-18.0); Mean Corpuscular Hgb Conc 35.3 g/dL (32-36); Mean Corpuscular Volume 93.5 fL (80-100); RDW Coefficient of Variation 15.3 % (11.5-14.5); RDW Standard Deviation 50.8 fL (36.4-46.3); White Blood Count 2.42 K/uL (4.8-10.8)
[2020-05-03 12:46] LABS: Mean Platelet Volume 9.2 fL (7.4-10.4); Platelet Count 99 K/uL (130-400)
--- NOTE | 2020-05-03 13:06 | Electrocardiogram Report ---
Test Reason : Blood Pressure : / mmHG Vent. Rate : 083 BPM Atrial Rate : 083 BPM P-R Int : 124 ms QRS Dur : 086 ms QT Int : 436 ms P-R-T Axes : 024 002 025 degrees QTc Int : 512 ms Normal sinus rhythm Prolonged QT Abnormal ECG When compared with ECG of 11-APR-2020 22:07, No significant change was found Confirmed by Ezequiel Leonard ([id number]) on 05/03/2020 1:06:11 PM Referred By: Jose Cruz Barrios Confirmed By:Ezequiel Leonard
[2020-05-03] MEDS ORDERED: SODIUM CHLORIDE 0.9% 1000ML 1,000 ML IV PRN (14:15)
--- NOTE | 2020-05-03 14:15 | Nephrology Consultation ---
Date of Consultation May 03, 2020 Assessment & Plan (1) Patient requiring acute dialysis: multifactorial dialysis dependent acute renal failure; prerenal in part due to dehydration/diarrhea/poor po in the wake of induction chemotherapy earlier this month and due to tubular toxicity from light chains/myeloma kidney. -will do extra HD 2 hrs today to manage volume shifts with transfusions in oligoanuric patient -plan thereafter to resume regular dialysis schedule MWF or as clinical needs dictate Present on Admission?: Yes (2) Anemia: multifactorial anemia with role for hematochezia prior to admission for past 3 weeks; also pancytopenia from myeloma therapy; also with anemia of advanced renal failure; pt follows with [facility] for anal fissure and hemhorroids; had also been started recently on aspirin -repeat CXR prior to transfusion since he is at risk for TACO (d/t renal failure, crackles on exam, >2 units proposed) >> CXR is unchanged from admission and clear; reassuring and reasonable to proceed -for third pRBC unit today with careful monitoring Present on Admission?: Yes History of Present Illness Reason for Consultation: Dialysis patient with acute anemia Requesting Physician: Dr Rowe Attending Physician: Shonda Rowe MD History of Present Illness 50 y/o M with recently diagnosed multiple myeloma was admitted overnight for management of acute on chronic anemia with presenting hgb 6.2 and intermittent hematochezia for the past few weeks. He dialyzes at [facility] under my partner's care and only just finished his first week on outpatient HD treatment: he is currently categorized as acute renal failure, not ESRD. He completed his treatment yesterday but had near syncopal episode post treatment and was sent to ER where acute on chronic anemia discovered. PMH includes multiple myeloma as above, also plasmacytoma L second rib, chronic anal fissure. In the ER he had a L of NS; has also received 2 units pRBC overnight. Hgb to 7.6 now. Pt on RA, NAD, tired, afebrile, no rash; ongoing hematochezia; endorses oligoanuria but no new/worrisome voiding sx. Another unit pRBC is planned for later today. Allergies Allergy/AdvReac Type Severity Reaction Status Date / Time No Known Allergies Allergy Verified 05/02/20 21:54 Home Medications Home Medications Medication Instructions Recorded Confirmed Type acyclovir 400 mg PO DAILY 03/28/20 05/02/20 History aspirin [Aspirin Low Dose] 81 mg PO QAM 03/28/20 05/02/20 History loperamide 4 mg PO QID PRN 05/02/20 05/02/20 History ondansetron 8 mg PO Q12H PRN 05/02/20 05/02/20 History sevelamer carbonate 0.8 g PO TIDM 05/02/20 05/02/20 History Patient History Medical History Degenerative lumbar spinal stenosis Disc degeneration, lumbar Hemorrhoid Multiple myeloma Neuroforaminal stenosis of lumbar spine Patient requiring acute dialysis Surgical History History of lumbar surgery 2014 Family History Grandfather (Maternal) Stroke Denies family history of Ovarian cancer Prostate cancer Myocardial infarction Breast cancer Colorectal cancer Lung disease Social History Smoking Status: Never smoker Second Hand Exposure: No; Hx Alcohol Use: Yes Alcohol type: beer Hx Substance Use: No Preferred Language: Occitan Communication Ability: Effective Visual Impairment: No Limitations Hearing Ability: Normal Quality Control Scientist Required: No Beliefs That Will Affect Care: None Current Living Situation: Spouse current occupational status: employed current occupation: [employer] Other Information That Helps Us Care for You: No Feels Safe at Home: Yes Safety Concerns: Feels Safe At This Time Childhood Exposure to Second-Hand Smoke: No Review of Systems Review of Systems: All systems reviewed & are unremarkable except as noted in HPI & below Constitutional: + fatigue, + weakness and + anorexia Eyes: no problem reported Respiratory: no cough and no dyspnea Genitourinary: + problem reported (endorses oligoanuria not new; no change to voiding habits past week) Physical Exam Constitutional: well developed, well nourished and cooperative; no acute distress on RA, looks visibly tired Eyes: EOM intact bilaterally ENMT: Ears: no external ear abnormality Nose: no external nose abnormality Mouth: + dry oral mucous membranes Neck: no nuchal rigidity Respiratory: normal respiratory effort and able to speak in complete sentences; no respiratory distress, no labored breathing and expiratory phase not prolonged Auscultation: + diminished lung sounds and + crackles (bibasilar) Cardiovascular: RRR, no murmur, no edema Gastrointestinal (Abdomen): Inspection/Auscultation: normal bowel sounds Percussion/Palpation: abdomen soft; abdomen nontender Musculoskeletal: Extremities: strength 5/5 throughout Skin: no rashes, warm and dry Neurologic: carrasco, fluent speech, no tremor Psychiatric: Orientation: alert and oriented x 3 Eye Contact: + fair eye contact Affect: + flat affect Results & Data ([facility]) Vital Signs (Past 12 Hours) Vital Signs Temp Pulse Pulse Resp BP BP Pulse Ox 05/03/20 07:50 36.9 C 66 14 108/68 95 05/03/20 06:49 36.8 C 69 14 125/73 95 05/03/20 06:07 36.9 C 76 16 117/71 96 05/03/20 05:30 37 C 71 14 113/71 93 05/03/20 05:07 37 C 73 16 122/70 93 05/03/20 04:07 36.9 C 75 14 114/71 94 05/03/20 03:37 37.3 C 77 16 117/72 94 05/03/20 03:22 36.9 C 78 16 114/70 94 05/03/20 03:04 37.1 C 83 16 109/68 94 05/03/20 02:23 36.8 C 85 14 111/68 95 05/03/20 02:16 37.2 C 82 16 107/64 95 Laboratory Results 05/03/20 12:02 05/03/20 07:50 Diagnostic Findings cxr yesterday 1. Stable 42 mm pleural-based left upper lung zone lesion with possible underlying rib destruction. 2. No evidence of failure. No evidence of focal pulmonary consolidation (1) Anemia Anemia type: unspecified type Qualified Code(s): D64.9 - Anemia, unspecified
--- NOTE | 2020-05-03 15:01 | XRay Report ---
SINGLE VIEW CHEST CLINICAL HISTORY: Status post transfusion. Pulmonary crackles on physical examination. FINDINGS: An AP, portable, upright chest radiograph is compared to study dated 05/02/2020 and correlat ed with chest CT dated 02/21/2020. A right internal jugular central venous catheter is unchanged in po sition. The cardiomediastinal silhouette is unremarkable. A 4.2 cm pleural-based lesion in the left u pper lobe is similar to previous. No airspace consolidation or pleural effusion is identified. No pne umothorax is seen. The skeletal structures are osteopenic. The bony thorax is grossly intact. IMPRESSION: 1. No acute cardiopulmonary abnormality is identified. 2. A 4.2 cm pleural-based lesion in the left upper lobe is unchanged from previous. ACT 112: Negative or not required by law. Electronically signed by: Adrian Hines M.D. 05/03/2020 3:00 PM
[2020-05-03 15:19] LABS: Hepatitis B Surface Ab Quant < 3.10 mIU/mL (>or=10mIU/mL Immune); Hepatitis B Surface Antibody Non-Immune
--- NOTE | 2020-05-03 15:27 | Hospitalist Progress Note ---
Date of Service May 03, 2020 Assessment & Plan (1) Near syncope: Mr. Hyatt is a 50 yo M with a PMHx of multiple myeloma on chemotherapy, complicated by ESRD on hemodialysis who presented to the ED directly from his dialysis facility after a near syncopal event. Patient was found to be si gnificantly anemic and was admitted for a blood transfusion. - etiology of near syncopal episode likely symptomatic anemia given Hgb of 6.2 - treatment as below -No further symptoms and feeling much better status post blood transfusion, vital signs are normal (2) Anemia: With acute blood loss anemia in the setting of chronic anemia - hgb 6.2 on admission, MCV 96 - potentially both a production and a loss problem -With multiple myeloma and ongoing chemo + concurrent ESRD as well as ongoing chronic GI blood loss over the last several weeks possibly secondary to anal fissure Hemoglobin up to 7.6 after 2 units PRBCs transfused. Continue to have some mild rectal bleeding. -We will give 1 more unit of PRBCs along with dialysis to prevent volume ove rload as he already had 2 units overnight-discussed with oncology and nephrology - follows with [facility] surgeon- known hemorrhoids and anal fissure (which is currently not painful)-recommend outpatient follow-up with colorectal surgeon - repeat CBC in AM (3) Pancytopenia: - likely secondary to bone marrow suppression (secondary both to his multiple myeloma and his ongoing chemotherapy) - ANC 1070, platelets mildly low at 99, anemia as above -Remains afebrile - neutropenic precautions -Transfuse PRBCs as above Follow CBC in the morning (4) Multiple myeloma: - diagnosed via bone marrow biopsy at [facility] in 02/2020, did not do well with first round of treatment is now starting a second type of treatment next week with cyclophosphamide Velcade, and dexamethasone - Dr. Barrios is local point of contact - most recent chemo infusion 04/23 Also with myeloma kidney -Continue acyclovir for prophylaxis (5) ESRD (end stage renal disease) on dialysis: - likely secondary to pathology of multiple myeloma - MWF hemodialysis at the [facility] dialysis center in [place] -Creatinine up to 4.3 today, getting urgent dialysis today due to receiving 3 units of PRBCs Appreciate nephrology consultation Follow renal panel in the morning -Patient has been refusing his Renagel powder at home as he does not like the taste-we will change to the tablet here which she is able to tolerate (6) Anal fissure: Secondary to ongoing chronic diarrhea since being on chemotherapy - follows with [facility] colorectal surgery - patient would likely benefit from a colonoscopy, however per patient, providers have been hesitant to do any procedures on him given his immunosuppressive chemo regimen and the risk of operative infection - consider outpatient Cologuard testing -Given ongoing mild rectal bleeding, recommend outpatient follow-up with his established colorectal surgeon-transfuse for now as above -It seems he has diltiazem compounded ointment to put on it from home -Discontinue aspirin 81 (7) Hyperphosphatemia: Continue Renagel 800 mg p.o. 3 times daily with meals Follow phosphorus level in the morning (8) Superficial thrombophlebitis of arm: Previously had this upon discharge from [facility] 2 weeks ago, but it is now resolved based on my examination He should discontinue the aspirin he was placed on for this considering the rectal bleeding (9) DVT prophylaxis: Avoid chemical means due to rectal bleeding SCDs will be added Disposition-remain overnight hopeful for discharged home tomorrow Admission and Anticipated Discharge Date Admission Date: May 02, 2020 Subjective Patient feeling much better today. No longer lightheaded or weak. He is been getting up and going to the bathroom and back on his own. Denies chest pain or shortness of breath. Denies abdominal pain or nausea. His appetite is low but is chronically low with his cancer and chemotherapy treatment. He has had 2 bowel movements today both with a small amount of bright red blood with them. He reports he has been having small amounts of bright red blood with bowel movements for the last 3 weeks. No clots of blood that he is seen, no black tarry stools. He always has loose "explosive" bowel movements since he has had cancer, and has been diagnosed with an anal fissure for which he saw a colorectal surgeon at [facility]. I discussed his case at length with both oncology and with Dr. Justice of nephrology today. Review of Systems Review of Systems: All systems reviewed & are unremarkable except as noted in HPI & below Physical Exam Constitutional: WD/WN, vitals as above Eyes: + anicteric sclerae ENMT: external ear and nose normal, oropharynx normal Neck: trachea midline, no thyromegaly Respiratory: normal respiratory effort, lungs clear to auscultation Cardiovascular: RRR, no murmur, no edema Chest (Breasts): Chest: + vascular access device or port (Tunneled IJ permanent catheter on the right side of anterior chest wall) Gastrointestinal (Abdomen): normal bowel sounds, soft, nontender, no hepat osplenomegaly Musculoskeletal: Extremities: extremities normal to inspection; no cyanosis and no clubbing Skin: no rashes, warm and dry Neurologic: moves all extremities and awake; no focal motor deficits Psychiatric: A+Ox3, euthymic affect Lymphatic: no lymphedema Results & Data Results & Data ([facility]) Vital Signs (Past 12 Hours) Vital Signs Temp Pulse Pulse Resp BP BP Pulse Ox 05/03/20 07:50 36.9 C 66 14 108/68 95 05/03/20 06:49 36.8 C 69 14 125/73 95 05/03/20 06:07 36.9 C 76 16 117/71 96 05/03/20 05:30 37 C 71 14 113/71 93 05/03/20 05:07 37 C 73 16 122/70 93 05/03/20 04:07 36.9 C 75 14 114/71 94 05/03/20 03:37 37.3 C 77 16 117/72 94 Laboratory Results 05/03/20 05/03/20 05/03/20 Range/Units 14:30 12:02 08:30 WBC 2.42 L (4.8-10.8) K/uL RBC 2.30 L (4.7-6.1) M/uL Hgb 7.6 L (14.0-18.0) g/dL Hct 21.5 L (42-52) % MCV 93.5 (80-100) fL MCH 33.0 (25-34) pg MCHC 35.3 (32-36) g/dL RDW Std Deviation 50.8 H (36.4-46.3) fL RDW Coeff of Regina 15.3 H (11.5-14.5) % Plt Count 99 L (130-400) K/uL MPV 9.2 (7.4-10.4) fL Immature Gran % (Auto) % Neut % (Auto) % Lymph % (Auto) % [place] % (Auto) % Eos % (Auto) % Baso % (Auto) % Neut # (Auto) (1.4-6.5) K/uL Lymph # (Auto) (1.2-3.4) K/uL [place] # (Auto) (0.11-0.59) K/uL Eos # (Auto) (0-0.5) K/uL Baso # (Auto) (0-0.2) K/uL Immature Gran # (Auto) (0.00-0.02) K/uL RBC Morphology PT (9.0-12.0) Seconds INR (0.9-1.1) APTT (21.0-31.0) Seconds PTT Ratio Sodium (136-145) mmol/L Potassium (3.5-5.1) mmol/L Chloride (98-107) mmol/L Carbon Dioxide (21-32) mmol/L Anion Gap (3-11) BUN (7-18) mg/dl Creatinine (0.6-1.4) mg/dl Est Cr Clr Drug Dosing Est GFR ( Amer) Est GFR (Non-Af Amer) BUN/Creatinine Ratio (10-20) Glucose (70-99) mg/dl Calcium (8.5-10.1) mg/dl Magnesium (1.8-2.4) mg/dl Total Bilirubin (0.2-1) mg/dl Direct Bilirubin (0-0.2) mg/dl AST (15-37) U/L ALT (12-78) U/L Alkaline Phosphatase (45-117) U/L Troponin I (0-0.045) ng/ml Total Protein (6.4-8.2) gm/dl Albumin (3.4-5.0) gm/dl Globulin (2.5-4.0) gm/dl Albumin/Globulin Ratio (0.9-2) Urine Color Yellow Urine Appearance Clear (Clear) Urine pH >= 9.0 H (4.5-7.5) Ur Specific [place] 1.013 (1.000-1.030) Urine Protein 2+ H (Negative) Urine Glucose (UA) Negative (Negative) Urine Ketones Negative (Negative) Urine Blood Trace H (Negative) Urine Nitrite Negative (Negative) Urine Bilirubin Negative (Negative) Urine Urobilinogen Negative (Negative) Ur Leukocyte Esterase Trace H (Negative) Urine WBC (Auto) 10-30 H (0-5) /hpf Urine RBC (Auto) 0-4 (0-4) /hpf U Hyaline Cast (Auto) 1-5 (0-5) /lpf U Epithel Cells (Auto) 20-30 H (0-5) /lpf Urine Bacteria (Auto) Negative (Negative) Hep Bs Antigen Neg (Neg) Hep Bs Antibody Non-Immune Hep Bs Antibody, Quant < 3.10 L (>or=10mIU/mL Immune) mIU/mL Blood Type Antibody Screen Crossmatch 05/03/20 05/03/20 05/02/20 Range/Units 07:50 07:50 21:14 WBC 2.29 L (4.8-10.8) K/uL RBC 2.31 L (4.7-6.1) M/uL Hgb 7.4 L (14.0-18.0) g/dL Hct 21.7 L (42-52) % MCV 93.9 (80-100) fL MCH 32.0 (25-34) pg MCHC 34.1 (32-36) g/dL RDW Std Deviation 49.6 H (36.4-46.3) fL RDW Coeff of Regina 15.2 H (11.5-14.5) % Plt Count 99 L (130-400) K/uL MPV 9.2 (7.4-10.4) fL Immature Gran % (Auto) 0.4 % Neut % (Auto) 46.8 % Lymph % (Auto) 35.4 % [place] % (Auto) 5.7 % Eos % (Auto) 10.0 % Baso % (Auto) 1.7 % Neut # (Auto) 1.07 L (1.4-6.5) K/uL Lymph # (Auto) 0.81 L (1.2-3.4) K/uL [place] # (Auto) 0.13 (0.11-0.59) K/uL Eos # (Auto) 0.23 (0-0.5) K/uL Baso # (Auto) 0.04 (0-0.2) K/uL Immature Gran # (Auto) 0.01 (0.00-0.02) K/uL RBC Morphology Unremarkable PT (9.0-12.0) Seconds INR (0.9-1.1) APTT (21.0-31.0) Seconds PTT Ratio Sodium 139 (136-145) mmol/L Potassium 3.6 D (3.5-5.1) mmol/L Chloride 104 (98-107) mmol/L Carbon Dioxide 29 (21-32) mmol/L Anion Gap 6.0 (3-11) BUN 8 (7-18) mg/dl Creatinine 4.34 H D (0.6-1.4) mg/dl Est Cr Clr Drug Dosing 21.0 Est GFR ( Amer) 17.2 Est GFR (Non-Af Amer) 14.8 BUN/Creatinine Ratio 1.8 L (10-20) Glucose 84 (70-99) mg/dl Calcium 7.1 L (8.5-10.1) mg/dl Magnesium (1.8-2.4) mg/dl Total Bilirubin 0.5 (0.2-1) mg/dl Direct Bilirubin 0.2 (0-0.2) mg/dl AST 23 (15-37) U/L ALT 27 (12-78) U/L Alkaline Phosphatase 301 H (45-117) U/L Troponin I (0-0.045) ng/ml Total Protein 5.0 L (6.4-8.2) gm/dl Albumin 1.9 L (3.4-5.0) gm/dl Globulin (2.5-4.0) gm/dl Albumin/Globulin Ratio (0.9-2) Urine Color Urine Appearance (Clear) Urine pH (4.5-7.5) Ur Specific [place] (1.000-1.030) Urine Protein (Negative) Urine Glucose (UA) (Negative) Urine Ketones (Negative) Urine Blood (Negative) Urine Nitrite (Negative) Urine Bilirubin (Negative) Urine Urobilinogen (Negative) Ur Leukocyte Esterase (Negative) Urine WBC (Auto) (0-5) /hpf Urine RBC (Auto) (0-4) /hpf U Hyaline Cast (Auto) (0-5) /lpf U Epithel Cells (Auto) (0-5) /lpf Urine Bacteria (Auto) (Negative) Hep Bs Antigen (Neg) Hep Bs Antibody Hep Bs Antibody, Quant (>or=10mIU/mL Immune) mIU/mL Blood Type O Positive Antibody Screen NEGATIVE Crossmatch See Detail 08/28/20 08/28/20 08/28/20 Range/Units 20:45 20:45 20:45 WBC 2.01 L (4.8-10.8) K/uL RBC 1.94 L (4.7-6.1) M/uL Hgb 6.2 L* (14.0-18.0) g/dL Hct 18.7 L* (42-52) % MCV 96.4 (80-100) fL MCH 32.0 (25-34) pg MCHC 33.2 (32-36) g/dL RDW Std Deviation 49.5 H (36.4-46.3) fL RDW Coeff of Regina 14.8 H (11.5-14.5) % Plt Count 117 L (130-400) K/uL MPV 9.1 (7.4-10.4) fL Immature Gran % (Auto) 0.0 % Neut % (Auto) 54.2 % Lymph % (Auto) 31.3 % [place] % (Auto) 4.5 % Eos % (Auto) 7.5 % Baso % (Auto) 2.5 % Neut # (Auto) 1.09 L (1.4-6.5) K/uL Lymph # (Auto) 0.63 L (1.2-3.4) K/uL [place] # (Auto) 0.09 L (0.11-0.59) K/uL Eos # (Auto) 0.15 (0-0.5) K/uL Baso # (Auto) 0.05 (0-0.2) K/uL Immature Gran # (Auto) 0.00 (0.00-0.02) K/uL RBC Morphology Unremarkable PT 11.6 (9.0-12.0) Seconds INR 1.1 (0.9-1.1) APTT 21.4 (21.0-31.0) Seconds PTT Ratio 0.8 Sodium 138 (136-145) mmol/L Potassium 3.1 L (3.5-5.1) mmol/L Chloride 100 (98-107) mmol/L Carbon Dioxide 30 (21-32) mmol/L Anion Gap 8.0 (3-11) BUN 5 L (7-18) mg/dl Creatinine 2.87 H (0.6-1.4) mg/dl Est Cr Clr Drug Dosing Not Reportable Est GFR ( Amer) 28.3 Est GFR (Non-Af Amer) 24.4 BUN/Creatinine Ratio 1.8 L (10-20) Glucose 80 (70-99) mg/dl Calcium 8.0 L (8.5-10.1) mg/dl Magnesium 1.9 (1.8-2.4) mg/dl Total Bilirubin 0.5 (0.2-1) mg/dl Direct Bilirubin (0-0.2) mg/dl AST 31 (15-37) U/L ALT 35 (12-78) U/L Alkaline Phosphatase 372 H (45-117) U/L Troponin I < 0.015 (0-0.045) ng/ml Total Protein 5.8 L (6.4-8.2) gm/dl Albumin 2.3 L (3.4-5.0) gm/dl Globulin 3.5 (2.5-4.0) gm/dl Albumin/Globulin Ratio 0.7 L (0.9-2) Urine Color Urine Appearance (Clear) Urine pH (4.5-7.5) Ur Specific [place] (1.000-1.030) Urine Protein (Negative) Urine Glucose (UA) (Negative) Urine Ketones (Negative) Urine Blood (Negative) Urine Nitrite (Negative) Urine Bilirubin (Negative) Urine Urobilinogen (Negative) Ur Leukocyte Esterase (Negative) Urine WBC (Auto) (0-5) /hpf Urine RBC (Auto) (0-4) /hpf U Hyaline Cast (Auto) (0-5) /lpf U Epithel Cells (Auto) (0-5) /lpf Urine Bacteria (Auto) (Negative) Hep Bs Antigen (Neg) Hep Bs Antibody Hep Bs Antibody, Quant (>or=10mIU/mL Immune) mIU/mL Blood Type Antibody Screen Crossmatch PG Care Time/CCT Total # of Minutes Spent Total Time Spent with Patient: Total time spent is greater than 50% in coordination of care (as documented) at patient's floor/unit and/or counseling patient: Coding Level of Care Code 17117 Subseq Hosp Care Lvl 3 Diagnoses Near syncope R55 Anemia D64.9 Pancytopenia D61.818 Multiple myeloma C90.00 ESRD (end stage renal disease) on dialysis N18.6; Z99.2 Anal fissure K60.2 Hyperphosphatemia E83.39 Superficial thrombophlebitis of arm I80.8 DVT prophylaxis Z29.9
[2020-05-03 15:30] LABS: Hepatitis B Surface Antigen Neg (Neg)
[2020-05-04 05:45] LABS: Basophils # (auto) 0.06 K/uL (0-0.2); Basophils % (auto) 1.9 %; Eosinophils # (auto) 0.38 K/uL (0-0.5); Eosinophils % (auto) 12.1 %; Hematocrit (blood only) 27.6 % (42-52); Hemoglobin 9.1 g/dL (14.0-18.0); Immature Granulocytes # (auto) 0.01 K/uL (0.00-0.02); Immature Granulocytes % (auto) 0.3 %; Lymphocytes % (auto) 34.9 %; Mean Corpuscular Hemoglobin 30.8 pg (25-34); Mean Corpuscular Volume 93.6 fL (80-100); Mean Platelet Volume 9.3 fL (7.4-10.4); Monocytes # (auto) 0.18 K/uL (0.11-0.59); Monocytes % (auto) 5.7 %; Neutrophils # (auto) 1.42 K/uL (1.4-6.5); Neutrophils % (auto) 45.1 %; Platelet Count 112 K/uL (130-400); RDW Coefficient of Variation 15.3 % (11.5-14.5); Red Blood Count 2.95 M/uL (4.7-6.1); White Blood Count 3.15 K/uL (4.8-10.8)
[2020-05-04 06:33] LABS: BUN Creatinine Ratio 1.7 (10-20); Calcium 7.1 mg/dl (8.5-10.1); Creatinine Clr Calc Pharmacy 19.6 ml/min; Est GFR (African American) 15.8; Est GFR (Non-African American) 13.6; Magnesium 2.1 mg/dl (1.8-2.4); Phosphorus 2.3 mg/dl (2.5-4.9); Potassium 3.6 mmol/L (3.5-5.1)
[2020-05-04] MEDS: SEVELAMER HCL 800 MG TABLET PO SCH (09:15)
[2020-05-04] MEDS: ACYCLOVIR 400 MG TAB PO SCH (09:15)
--- NOTE | 2020-05-04 10:12 | Discharge Summary ---
Date of Service May 04, 2020 Admission HPI Per Admitting Provider Mr. Hyatt is a 50 yo gentleman with a PMHx of multiple myeloma (diagnosed via bone marrow biopsy at [facility] in 02/2020) currently undergoing chemotherapy (most recent infusion 04/22/20) under the direction of [facility] who recently developed end-stage renal disease, currently on MWF hemodialysis. On his way into dialysis today, Mr. Hyatt felt weak, fatigued, and became diffusely diaphoretic before his legs gave way. He denies loss of consciousness and has complete recall of the event. He managed to get into his dialysis facility and complete his session - based on his hemoglobin level, Dr. Barrios, who is his local contact for chemotherapy infusions, was notified and ultimately directed Mr. Hyatt to the ED for a blood transfusion. Of note, he had a recent 14 day hospital stay at [facility] at which ti me he was diagnosed with ESRD. During this admission he had been transfused 2 units of pRBCs. Mr. Hyatt does report seeing blood mixed in his stool over the past 5 days. He saw [facility] in 02/2020, at which time he was diagnosed with an anal fissure. He also has known hemorrhoids, which he treats with hydrocortisone and diltiazem. Although a routine screening colonoscopy would be indicated now th at he has reached age 50, providers have advised him to wait until after he completes his chemotherapy regimen before getting this procedure (due to the risks of potential infection while immunosuppressed). Despite the observed hematochezia, Mr. Hyatt insists that his fissure is not painful at present. ED Course: Hgb 6.2, MCV 96. WBC 2.01. Platelets 117k. Coags WNL. K 3.1. Cr 2.87. Ca corrects to 9.4. trop x 1 undetectable. CXR showing no active disease. Patient was given 1 liter of IV saline and transfused 2 units of irradiated pRBCs. Principal Diagnosis Acute blood loss anemia, near syncope, GI bleeding Discharge Exam Constitutional WD/WN, vitals as above Eyes + anicteric sclerae ENMT external ear and nose normal, oropharynx normal Neck trachea midline, no thyromegaly Respiratory normal respiratory effort, lungs clear to auscultation Cardiovascular RRR, no murmur, no edema Chest (Breasts) Chest: + vascular access device or port (Tunneled IJ permanent catheter on the right side of anterior chest wall) Gastrointestinal (Abdomen) normal bowel sounds, soft, nontender, no hepatosplenomegaly Musculoskeletal Extremities: extremities normal to inspection; no cyanosis and no clubbing Skin no rashes, warm and dry Neurologic moves all extremities and awake; no focal motor deficits Psychiatric A+Ox3, euthymic affect Lymphatic no lymphedema Discharge Data Allergies Allergy/AdvReac Type Severity Reaction Status Date / Time No Known Allergies Allergy Verified 05/02/20 21:54 Consultations 05/02/20 21:26 ED Decision to Admit Stat 05/03/20 08:04 Consult Nephrology Routine 05/03/20 08:10 Consult Oncology Routine Ordered Studies Chest x-ray x2 Hospital Course (1) Near syncope: Mr. Hyatt is a 50 yo M with a PMHx of multiple myeloma on chemotherapy, complicated by ESRD on hemodialysis who presented to the ED directly from his dialysis facility after a near syncopal event. Patient was found to be significantly anemic and was admitted for a blood transfusion. - etiology of near syncopal episode likely symptomatic anemia given Hgb of 6.2 - treatment as below -No further symptoms and feeling much better status post blood transfusion, vital signs are normal (2) Anemia: With acute blood loss anemia in the setting of chronic anemia - hgb 6.2 on admission, MCV 96 - potentially both a production and a loss problem -With multiple myeloma and ongoing chemo + concurrent ESRD as well as ongoing chronic GI blood loss over the last several weeks possibly secondary to anal fissure Hemoglobin up to 7.6 after 2 units PRBCs transfused. Continue to have some mild rectal bleeding. He then received 1 more unit of PRBCs along with dialysis to prevent volume overload and hemoglobin came up nicely to 9.1 on day of discharge - follows with [facility] colorectal surgeon- known hemorrhoids and anal fissure (which is currently not painful)-recommend outpatient follow-up with colorectal surgeon - repeat CBC with oncology within the week (3) Pancytopenia: - likely secondary to bone marrow suppression (secondary both to his multiple myeloma and his ongoing antineoplastic chemotherapy) - ANC 1070, platelets mildly low at 99 and increased to 112 on the day of discharge, anemia as above -Remains afebrile - neutropenic precautions -Transfused PRBCs as above Follow CBC with oncology in 1 week as an outpatient (4) Multiple myeloma: - diagnosed via bone marrow biopsy at [facility] in 02/2020, did not do well with first round of treatment is now starting a second type of treatment next week with cyclophosphamide Velcade, and dexamethasone - Dr. Barrios is local point of contact - most recent chemo infusion 04/23 Also with myeloma kidney -Continue acyclovir for prophylaxis (5) ESRD (end stage renal disease) on dialysis: - likely secondary to pathology of multiple myeloma - MWF hemodialysis at the [facility] dialysis center in [place] -Creatinine stable at 4.6 today, received urgent dialysis shortened session on hospital day #2 due to receiving 3 units of PRBCs and was doing well the day of discharge Appreciate nephrology consultation Follow-up with outpatient hemodialysis on Tuesday as usual after discharge -Patient has been refusing his Renagel powder at home as he does not like the taste-we will change to the tablet upon discharge which he is able to tolerate (6) Anal fissure: Secondary to ongoing chronic diarrhea since being on chemotherapy - follows with [facility] colorectal surgery - patient would likely benefit from a colonoscopy, however per patient, providers have been hesitant to do any procedures on him given his immunosuppressive chemo regimen and the risk of operative infection - consider outpatient Cologuard testing -Given ongoing mild rectal bleeding, recommend outpatient follow-up with his established colorectal surgeon-transfused for now as above and close surveillance of CBC is recommended -It seems he has diltiazem compounded ointment to put on it from home -Discontinued aspirin 81 (7) Hyperphosphatemia: Continue Renagel 800 mg p.o. 3 times daily with meals Phosphorus level here is actually mildly low at 2.3, but should remain on the binder to reduce morbidity mortality associated with long-term ESRD requiring dialysis (8) Superficial thrombophlebitis of arm: Previously had this upon discharge from [facility] 2 weeks ago, but it is now resolved based on my examination He should discontinue the aspirin he was placed on for this considering the rectal bleeding (9) DVT prophylaxis: Avoid chemical means due to rectal bleeding SCDs were utilized Disposition-stable for discharge to home Total Time Total Time Spent Total Time Spent (In Minutes): 35 minutes Total Time Includes: Examination of the Patient, Discharge Planning and Medication Reconciliation Discharge Plan Discharge Items Patient Disposition: Home - Self-Care Reason For Visit: ANEMIA Discharge Diagnosis: Acute blood loss anemia, near syncope, rectal bleeding Condition on Discharge: Fair Activity: Resume your previous activity Non-emergency contact: Primary Care Provider, Surgeon, English Composition Teacher and Oncologist Call non-emergency contact if: you have any medication questions and your symptoms worsen Follow-up/Referrals: Adrian Prince MD [Primary Care Provider] - (Follow-up within 1 to 2 weeks.) Jose Cruz Barrios V., [Physician] - (Follow-up as scheduled in 1 week) Diet: Dialysis Renal Addtl Attending Provider Instructions: You are admitted with severe anemia which caused you to be lightheaded. You were transfused a total of 3 units of blood which greatly improved your symptoms and your blood count. You had a shortened dialysis session while you are here to prevent you from filling up with fluid from the blood transfusions. Please follow-up with your colorectal surgeon from [facility] due to the ongoing rectal bleeding you are having. You will continue to have your blood count checked routinely with oncology. Please follow-up routinely for dialysis on Tuesday as scheduled. Pending Studies at Discharge: No Stand-Alone Forms: My [facility] Medications and DC Order Prescriptions: New sevelamer HCl [Renagel] 800 mg Tablet 800 mg PO TIDM Qty: 90 RF: 0 Continued acyclovir 400 mg Tablet 400 mg PO DAILY RF: 0 loperamide 2 mg Tablet 4 mg PO QID PRN (Reason: Diarrhea) RF: 0 ondansetron 8 mg Tablet,Disintegrating 8 mg PO Q12H PRN (Reason: Nausea) RF: 0 Discontinued aspirin [Aspirin Low Dose] 81 mg Tablet,Delayed Release (Dr/Ec) 81 mg PO QAM RF: 0 sevelamer carbonate 0.8 gram Powder In Packet 0.8 g PO TIDM RF: 0 Discharge Orders: Discharge Order (Routine); Ordered 05/04/20 Ordered By: Shonda Rowe Admission Data Admit Date/Time: 05/02/20 22:46 Attending Provider: Shonda Rowe Admit Provider: Kathy Holt Primary Care Provider: Adrian Prince Other Providers: Sheri Guardado ; Jose Cruz Barrios V. ; Sienna Antonio Coding Level of Care Code D/C Day Management >30 mins Diagnoses Near syncope R55 Anemia D64.9 Pancytopenia D61.818 Multiple myeloma C90.00 ESRD (end stage renal disease) on dialysis N18.6; Z99.2 Anal fissure K60.2 Hyperphosphatemia E83.39 Superficial thrombophlebitis of arm I80.8 DVT prophylaxis Z29.9
== END 2020-05-04 11:43 | disposition home or self-care (01) ==
LOC: ED 20:12 → SUATTDRO 22:46 → 3E 22:46 → INTOOBSV 22:46 → 3E 23:36